=== PATIENT | female | born 1990 | race Caucasian/White ===

== ENCOUNTER 2017-11-12 17:35 | Emergency (ER) | payer MEDICAID ==
[~2017-11-12] VITALS: Ht 154.9 cm; Wt 52.2 kg
[~2017-11-12 17:35] MED LIST: Bactrim Ds Tab1 EACH PO; CEFAZOLIN2 GM/50 M1 IV; CEPH250A PO; CEPH500 PO; CODACE30 PO; CYCL10 PO; Diflucan200 MG PO; HYDACE5 PO; IBUP600; IBUP800 PO; Lisinopril2.5 MG PO; METERG.2 PO; NAPR500 PO; Norco 10-325 T1 EACH PO; ONDA4 PO; ONDA4ODT MM; OXYACE5T PO; OXYC5; PROM25 PO; RXHYDACE PO
[2017-11-12 18:08] LABS: Source, Urine Clean Catch
[2017-11-12 18:13] LABS: Appearance, Urine Hazy (Clear); Bilirubin, Urine Neg (Neg); Blood, Urine 1+ (Neg); Color, Urine Yellow (P-Yellow); Glucose Qualitative, Urine Neg (Neg); Ketones, Urine 4+ (Neg); Leukocyte Esterase, Urine 2+ (Neg); Nitrite, Urine Pos (Neg); Protein, Urine 1+ (Neg); Urobilinogen, Urine NORM (Normal)
[2017-11-12 18:22] LABS: BASOPHILS ABSOLUTE AUTO 0.04 K/mm3 (0.00-0.23); BASOPHILS PERCENT AUTO 1 % (0-2); EOSINOPHILS ABSOLUTE AUTO 0.05 K/mm3 (0.00-0.68); EOSINOPHILS PERCENT AUTO 1 % (0-6); Hematocrit 38.4 % (33.0-51.0); Hemoglobin 12.8 g/dL (11.5-16.0); IMMATURE GRAN ABSOLUTE AUTO 0.02 K/mm3 (0.00-0.10); IMMATURE GRAN PERCENT AUTO 0 % (0-1); LYMPHOCYTES ABSOLUTE AUTO 2.64 K/mm3 (0.84-5.20); LYMPHOCYTES PERCENT AUTO 35 % (21-46); MONOCYTES ABSOLUTE AUTO 0.57 K/mm3 (0.16-1.47); MONOCYTES PERCENT AUTO 8 % (4-13); Mean Corpuscular HGB Conc 33.3 g/dL (31.5-36.5); Mean Corpuscular Volume 87 fL (80-100); Mean Platelet Volume 10.4 fL (9.1-12.4); NEUTROPHILS ABSOLUTE AUTO 4.18 K/mm3 (1.96-9.15); NEUTROPHILS PERCENT AUTO 56 % (41-73); Platelet Count 242 K/mm3 (150-400); RDW Coefficient Variation 13.8 % (11.7-14.2); Red Blood Cell Count 4.41 M/mm3 (3.80-5.20)
[2017-11-12 18:39] LABS: Bacteria Mod /hpf; Mucus Mod (0-Heavy); Squamous Epithelial Cells Few /hpf (Few)
[2017-11-12 18:56] LABS: Alanine Aminotransfer (ALT/SGP 22 U/L (12-78); Alk Phos 101 U/L (50-136); Anion Gap 11 mmol/L (6-16); Aspartate Aminotrans (AST/SGOT 22 U/L (12-37); Bilirubin, Total 2.4 mg/dL (0.1-1.0); Blood Urea Nitrogen 10 mg/dL (8-24); Bun/Creatinine Ratio 17.6 (12.0-20.0); CO2, Blood 24 mmol/L (21-32); Calcium, Blood 9.2 mg/dL (8.5-10.1); Chloride, Blood 102 mmol/L (98-108); Creatinine, Blood 0.57 mg/dL (0.40-1.00); Globulin, Blood 4.2 g/dL (2.2-4.0); Glomerular Filtration Rate >60 (60-); Glucose, Blood 86 mg/dL (70-99); Potassium, Blood 3.6 mmol/L (3.5-5.5); Sodium, Blood 137 mmol/L (136-145); Total Protein, Blood 8.2 g/dL (6.4-8.2)
[2017-11-12 18:57] LABS: Beta HCG, Quantitative, Serum 15475 mIU/mL (0-3)
== END 2017-11-12 22:55 | disposition home or self-care (01) ==
LOC: ER 17:35
PROVIDERS: Emergency Medicine
DX: O20.0 Threatened abortion (principal); Z3A.01 Less than 8 weeks gestation of pregnancy
CPT/HCPCS: 36415; 76801; 76817; 80053; 81001; 84702; 85025; 86900; 86901; 87077; 87086; 87186; 96374; 96375; 99284-25; J0780; J1200

== ENCOUNTER → 2018-02-11 | Outpatient (CLI) | payer OTHER ==
[2018-02-11 18:21] LABS: U Amphetamine Screen Not Detected; U Barbituate Screen Not Detected; U Benzodiazapine Screen Not Detected; U Cocaine Screen Not Detected; U Methadone Screen Not Detected; U Methamphetamine Screen Not Detected; U Opiates Screen DETECTED
[2018-02-11 18:22] LABS: U Buprenorphine Screen Not Detected; U Cannabinoids Screen Not Detected; U Oxycodone Screen Not Detected; U Phencyclidine Screen Not Detected; U Propoxyphene Screen Not Detected
== END | disposition home or self-care (01) ==
LOC: LAB SHORT 16:51
PROVIDERS: Obstetrics & Gynecology
DX: Z34.82 Encounter for supervision of other normal pregnancy, second trimester (principal); F11.10 Opioid abuse, uncomplicated

== ENCOUNTER 2018-03-28 15:06 | Emergency (ER) | payer OTHER ==
[~2018-03-28] VITALS: Ht 162.6 cm; Wt 54.4 kg
[2018-03-28 16:46] LABS: BASOPHILS ABSOLUTE AUTO 0.03 K/mm3 (0.00-0.23); BASOPHILS PERCENT AUTO 0 % (0-2); EOSINOPHILS PERCENT AUTO 0 % (0-6); Hematocrit 37.4 % (33.0-51.0); Hemoglobin 12.7 g/dL (11.5-16.0); IMMATURE GRAN ABSOLUTE AUTO 0.11 K/mm3 (0.00-0.10); IMMATURE GRAN PERCENT AUTO 1 % (0-1); LYMPHOCYTES ABSOLUTE AUTO 1.54 K/mm3 (0.84-5.20); LYMPHOCYTES PERCENT AUTO 10 % (21-46); MONOCYTES ABSOLUTE AUTO 0.36 K/mm3 (0.16-1.47); MONOCYTES PERCENT AUTO 2 % (4-13); Mean Corpuscular Volume 88 fL (80-100); Mean Platelet Volume 10.1 fL (9.1-12.4); NEUTROPHILS ABSOLUTE AUTO 13.42 K/mm3 (1.96-9.15); NEUTROPHILS PERCENT AUTO 87 % (41-73); Platelet Count 272 K/mm3 (150-400); RDW Coefficient Variation 13.1 % (11.7-14.2); RDW Standard Deviation 42.5 fL (35.1-46.3); Red Blood Cell Count 4.23 M/mm3 (3.80-5.20); White Blood Cell Count 15.46 K/mm3 (4.00-11.30)
[2018-03-28 16:56] LABS: Alanine Aminotransfer (ALT/SGP 14 U/L (12-78); Albumin, Blood 3.3 g/dL (3.4-5.0); Albumin/Globulin Ratio 0.7 (0.8-1.8); Alk Phos 108 U/L (50-136); Anion Gap 12 mmol/L (6-16); Aspartate Aminotrans (AST/SGOT 15 U/L (12-37); Bilirubin, Total 0.7 mg/dL (0.1-1.0); Blood Urea Nitrogen 8 mg/dL (8-24); CO2, Blood 19 mmol/L (21-32); Calcium, Blood 9.7 mg/dL (8.5-10.1); Chloride, Blood 107 mmol/L (98-108); Creatinine, Blood 0.45 mg/dL (0.40-1.00); Globulin, Blood 4.8 g/dL (2.2-4.0); Glomerular Filtration Rate >60 (60-); Glucose, Blood 89 mg/dL (70-99); Potassium, Blood 3.1 mmol/L (3.5-5.5); Sodium, Blood 138 mmol/L (136-145); Total Protein, Blood 8.1 g/dL (6.4-8.2)
[2018-03-28] MEDS ORDERED: Zofran4 MG PO (18:31)
[2018-03-28] MEDS ORDERED: K-Dur 20 meq T20 MEQ PO (19:29)
== END 2018-03-28 19:55 | disposition home or self-care (01) ==
LOC: ER 15:06
PROVIDERS: Physician Assistant
DX: O99.322 Drug use complicating pregnancy, second trimester (principal); F11.23 Opioid dependence with withdrawal; Z3A.25 25 weeks gestation of pregnancy
CPT/HCPCS: 36415; 80053; 83690; 84703; 85025; 96361; 96374; 99283-25; J2405; J7120

== ENCOUNTER 2018-03-30 13:02 | Emergency (ER) | payer OTHER ==
[~2018-03-30] VITALS: Ht 154.9 cm; Wt 50.8 kg
[~2018-03-30 13:02] MED LIST changes: +K-Dur 20 meq T20 MEQ PO; +Zofran4 MG PO
[2018-03-30 14:59] LABS: Alanine Aminotransfer (ALT/SGP 29 U/L (12-78); Albumin, Blood 3.2 g/dL (3.4-5.0); Albumin/Globulin Ratio 0.7 (0.8-1.8); Alk Phos 100 U/L (50-136); Anion Gap 13 mmol/L (6-16); Aspartate Aminotrans (AST/SGOT 32 U/L (12-37); Bilirubin, Total 1.1 mg/dL (0.1-1.0); Blood Urea Nitrogen 14 mg/dL (8-24); Bun/Creatinine Ratio 27.2 (12.0-20.0); CO2, Blood 20 mmol/L (21-32); Calcium, Blood 8.9 mg/dL (8.5-10.1); Chloride, Blood 103 mmol/L (98-108); Creatinine, Blood 0.52 mg/dL (0.40-1.00); Globulin, Blood 4.6 g/dL (2.2-4.0); Glomerular Filtration Rate >60 (60-); Glucose, Blood 90 mg/dL (70-99); Potassium, Blood 2.8 mmol/L (3.5-5.5); Sodium, Blood 136 mmol/L (136-145); Total Protein, Blood 7.8 g/dL (6.4-8.2)
[2018-03-30 15:57] LABS: BASOPHILS ABSOLUTE AUTO 0.03 K/mm3 (0.00-0.23); BASOPHILS PERCENT AUTO 0 % (0-2); EOSINOPHILS ABSOLUTE AUTO 0.01 K/mm3 (0.00-0.68); EOSINOPHILS PERCENT AUTO 0 % (0-6); Hematocrit 32.6 % (33.0-51.0); Hemoglobin 11.5 g/dL (11.5-16.0); IMMATURE GRAN ABSOLUTE AUTO 0.08 K/mm3 (0.00-0.10); IMMATURE GRAN PERCENT AUTO 1 % (0-1); LYMPHOCYTES PERCENT AUTO 21 % (21-46); MONOCYTES ABSOLUTE AUTO 0.85 K/mm3 (0.16-1.47); MONOCYTES PERCENT AUTO 7 % (4-13); Mean Corpuscular HGB 30.3 pg (26.0-34.0); Mean Corpuscular HGB Conc 35.3 g/dL (31.5-36.5); Mean Corpuscular Volume 86 fL (80-100); Mean Platelet Volume 9.5 fL (9.1-12.4); NEUTROPHILS ABSOLUTE AUTO 8.73 K/mm3 (1.96-9.15); NEUTROPHILS PERCENT AUTO 71 % (41-73); Platelet Count 257 K/mm3 (150-400); RDW Coefficient Variation 12.9 % (11.7-14.2); RDW Standard Deviation 40.4 fL (35.1-46.3); Red Blood Cell Count 3.79 M/mm3 (3.80-5.20)
== END 2018-03-30 17:28 | disposition home or self-care (01) ==
LOC: ER 13:02
PROVIDERS: Emergency Medicine; Physician Assistant
DX: O99.322 Drug use complicating pregnancy, second trimester (principal); F11.23 Opioid dependence with withdrawal; Z88.8 Allergy status to other drugs, medicaments and biological substances; Z88.0 Allergy status to penicillin; Z3A.26 26 weeks gestation of pregnancy
CPT/HCPCS: 36415; 80053; 83690; 85025; 96361; 96374; 99283-25; J2405; J7120

== ENCOUNTER 2018-04-01 12:40 | Observation (INO) | payer OTHER ==
[~2018-04-01] VITALS: Ht 154.9 cm; Wt 50.8 kg
[2018-04-01 14:27] LABS: BASOPHILS ABSOLUTE AUTO 0.03 K/mm3 (0.00-0.23); BASOPHILS PERCENT AUTO 0 % (0-2); EOSINOPHILS ABSOLUTE AUTO 0.04 K/mm3 (0.00-0.68); EOSINOPHILS PERCENT AUTO 0 % (0-6); Hematocrit 36.1 % (33.0-51.0); Hemoglobin 12.3 g/dL (11.5-16.0); IMMATURE GRAN ABSOLUTE AUTO 0.12 K/mm3 (0.00-0.10); IMMATURE GRAN PERCENT AUTO 1 % (0-1); LYMPHOCYTES ABSOLUTE AUTO 2.74 K/mm3 (0.84-5.20); LYMPHOCYTES PERCENT AUTO 28 % (21-46); MONOCYTES ABSOLUTE AUTO 0.63 K/mm3 (0.16-1.47); MONOCYTES PERCENT AUTO 7 % (4-13); Mean Corpuscular HGB 29.9 pg (26.0-34.0); Mean Corpuscular HGB Conc 34.1 g/dL (31.5-36.5); Mean Corpuscular Volume 88 fL (80-100); Mean Platelet Volume 10.1 fL (9.1-12.4); NEUTROPHILS ABSOLUTE AUTO 6.11 K/mm3 (1.96-9.15); NEUTROPHILS PERCENT AUTO 63 % (41-73); Platelet Count 264 K/mm3 (150-400); RDW Standard Deviation 41.6 fL (35.1-46.3); Red Blood Cell Count 4.12 M/mm3 (3.80-5.20); White Blood Cell Count 9.67 K/mm3 (4.00-11.30)
[2018-04-01 14:30] LABS: Chloride (POC) 101 mmol/L (98-108); Creatinine (POC) 0.3 mg/dL (0.6-1.0); Glucose (ISTAT POC) 92 mg/dL (70-99); Hemoglobin (POC) 10.9 g/dL (12.0-16.0); Potassium (POC) 2.7 mmol/L (3.5-5.5); Sodium (POC) 137 mmol/L (135-148); Total CO2 (POC) 23 mmol/L (21-32)
[2018-04-01 14:32] LABS: Alanine Aminotransfer (ALT/SGP 100 U/L (12-78); Albumin, Blood 3.1 g/dL (3.4-5.0); Albumin/Globulin Ratio 0.7 (0.8-1.8); Alk Phos 102 U/L (50-136); Anion Gap 11 mmol/L (6-16); Aspartate Aminotrans (AST/SGOT 84 U/L (12-37); Bilirubin, Total 0.7 mg/dL (0.1-1.0); Blood Urea Nitrogen 7 mg/dL (8-24); Bun/Creatinine Ratio 14.8 (12.0-20.0); CO2, Blood 24 mmol/L (21-32); Calcium, Blood 8.7 mg/dL (8.5-10.1); Chloride, Blood 103 mmol/L (98-108); Creatinine, Blood 0.47 mg/dL (0.40-1.00); Globulin, Blood 4.5 g/dL (2.2-4.0); Glomerular Filtration Rate >60 (60-); Glucose, Blood 89 mg/dL (70-99); Potassium, Blood 2.8 mmol/L (3.5-5.5); Sodium, Blood 138 mmol/L (136-145); Total Protein, Blood 7.6 g/dL (6.4-8.2)
[2018-04-01 16:39] LABS: Source, Urine Clean Catch
[2018-04-01 16:42] LABS: Bilirubin, Urine Neg (Neg); Blood, Urine Neg (Neg); Glucose Qualitative, Urine Neg (Neg); Ketones, Urine 3+ (Neg); Leukocyte Esterase, Urine 2+ (Neg); Nitrite, Urine Neg (Neg); Protein, Urine 1+ (Neg); Specific Gravity, Urine 1.005 (1.003-1.022); Urobilinogen, Urine 1+ (Normal)
[2018-04-01 16:53] LABS: Appearance, Urine Clear (Clear); Color, Urine Yellow (P-Yellow)
[2018-04-01 16:54] LABS: Bacteria Many /hpf; Mucus Mod (0-Heavy); Red Blood Cells, Urine 0-2 /hpf (0-2); Squamous Epithelial Cells Mod /hpf (Few)
--- NOTE | 2018-04-01 19:16 | NUR ---
RECEIVED FROM ER ABOUT 30 MIN AGO. [facility] ENTRY CLERK WAS WITH HER. SHE WILL PUT IN ORDERS. PATIENT HAS DIARRHEA AND NAUSEA. K-RIDER RESUMED.
--- NOTE | 2018-04-01 21:05 | NUR ---
CALLED DR WITH RESULTS OF EKG, QTC IS 435, NSR
[2018-04-01 22:58] LABS: U Amphetamine Screen Not Detected; U Barbituate Screen Not Detected; U Benzodiazapine Screen Not Detected; U Buprenorphine Screen Not Detected; U Cannabinoids Screen Not Detected; U Cocaine Screen Not Detected; U Methadone Screen Not Detected; U Methamphetamine Screen Not Detected; U Opiates Screen Not Detected; U Oxycodone Screen Not Detected; U Phencyclidine Screen Not Detected; U Propoxyphene Screen Not Detected
[2018-04-02 05:45] LABS: Anion Gap 9 mmol/L (6-16); Blood Urea Nitrogen 3 mg/dL (8-24); Bun/Creatinine Ratio 7.7 (12.0-20.0); CO2, Blood 23 mmol/L (21-32); Calcium, Blood 7.9 mg/dL (8.5-10.1); Chloride, Blood 109 mmol/L (98-108); Creatinine, Blood 0.39 mg/dL (0.40-1.00); Glomerular Filtration Rate >60 (60-); Glucose, Blood 97 mg/dL (70-99); Sodium, Blood 141 mmol/L (136-145)
--- NOTE | 2018-04-02 05:47 | NUR ---
PAINT STOCKMAN SUMMARY NO ACUTE CHANGES THIS SHIFT. PT AAOX4 AND INDEPENDENT IN ROOM. PLEASANT AND COOPERATIVE WITH CARE. TREATED FOR NAUSEA X1 TONIGHT WITH SCHEDULED REGLAN, PT REPORTED GOOD RELIEF WITH REGLAN. PT REQUESTED A SLEEP AID BUT STATED MELATONIN ISN'T EFFECTIVE FOR HER. SPOKE WITH MAIK RIGGS NP REGARDING PT REQUEST, HOWEVER MAIK WAS UNABLE TO PRESCRIBE SOMETHING DUE TO PT BEING . URINE TOX COLLECTED. VSS, WILL CONTINUE TO MONITOR.
--- NOTE | 2018-04-02 09:13 | NUR ---
CALLED FAMILY TO DO HEART TONES. PATIENT HAS BOT FELT BABY MOVE IN AWHILE AND REPORTS INTERMITTENT CONTRATIONS. FAMILY TALKING TO DOCTOR THAT IS ON THE UNIT AND WILL BE UP TO DO FHT.
--- NOTE | 2018-04-02 09:44 | NUR ---
FAWAD ANDREWS FROM [facility] AT BEDSIDE TO DO AN ULTRASOUND, FHT 150 AT THIS TIME.
--- NOTE | 2018-04-02 09:45 | NUR ---
CALLED TO PT ROOM TO EVALUATE PT FOR PTL AND DECREASED MOVEMENT. PT REPORTS FEELING 4 CRAMPS IN 45 MIN THAT BEGAN AT 0830. ONCE I AM IN THE ROOM PT EMPTIES HER BLADDER AND TO BED FOR EFM. PT DENIES ANY U/C WHILE ON EFM. REPORTS MOVEMENT. HEART TONES APPROPRIATE FOR GESTATIONAL AGE AND MOVEMENT NOTED. Moises ALVAREZ CNM CALLED AT 0940, UPDATED AND PT OFF EFM.
--- NOTE | 2018-04-02 18:34 | NUR ---
PATIENT A/OX4, UP INDEPENDENTLY IN ROOM. ORDERS FOR NO IV SITE. PO ZOFRAN AND REGLAN TO CONTROL NAUSEA. PATIENT IS 27 WEEKS . [facility] TO COME UP QSHIFT TO DO FHT. POTASSIUM REPLACED ORALLY, PATIENT HAD A HARD TIME KEEPING IT DOWN. TOOK 1/2 TABS AT A TIME OVER SEVERAL HOURS, STATES SHE THREW UP LAST 1/2 TAB. MULTIPLE ATTEMPTS TO START AN IV WITHOUT SUCCESS. REPORTS BLOODY STOOL THIS EVENING, HAT PLACED TO ATTEMPT TO CATCH A SAMPLE. PLAN IS FOR PATIENT TO D/C. APPT MADE FOR THURSDAY AT [facility].
--- NOTE | 2018-04-02 22:38 | NUR ---
PT REQUESTED TO WAIT UNTIL TOMORROW MORNING FOR NEXT HEART MONITORING. PT STATES "THE BABY HAS BEEN MOVING AROUND ALL DAY AND THEY MONITORED THE HEART RATE EARLIER TODAY SO I'D LIKE TO GET SOME SLEEP AND WAIT UNTIL TOMORROW".
[2018-04-02 23:50] LABS: Stool Occult Blood Guaiac 1 Neg (Neg)
--- NOTE | 2018-04-03 05:36 | NUR ---
LICENSED SALES PRODUCER SUMMARY NO ACUTE CHANGES THIS SHIFT. PT AAOX4 AND INDEPENDENT IN HER ROOM. PT NAUSEA HAS BEEN WELL MANAGED WITH SCHEDULED REGLAN AND PRN ZOFRAN. RECIEVED ORDER FROM HOSPITALIST FOR TUMS AND BENADRYL. PT REPORTED INDIGESTION AND DIFFICULTY SLEEPING. PT STATED TUMS HELPED WITH INDIGESTION BUT BENADRYL DID NOT HELP WITH SLEEP. PT ALSO REPORTS SOME STOMACH DISCOMFORT THAT WAS RELIEVED A LITTLE WITH TYLENOL. HOSPITALISTS CAUTIOUS TO ORDER ADDITIONAL PAIN MEDS OR SLEEP AIDS. DISCUSSED WITH PT TO TALK WITH NURSE DENTAL PROFESSIONAL ULYSSES ALVAREZ ABOUT ORDERING ADDITIONAL PAIN MEDS AND SLEEP AIDS THAT ARE APPROVED FOR PT TO USE WHILE . COLLECTED STOOL SAMPLE FOR GUAIAC TEST, WHICH WAS NEGATIVE. VSS, WILL CONTINUE TO MONITOR.
[2018-04-03 06:00] LABS: Anion Gap 8 mmol/L (6-16); Blood Urea Nitrogen 4 mg/dL (8-24); CO2, Blood 24 mmol/L (21-32); Calcium, Blood 9.3 mg/dL (8.5-10.1); Chloride, Blood 106 mmol/L (98-108); Creatinine, Blood 0.44 mg/dL (0.40-1.00); Glomerular Filtration Rate >60 (60-); Glucose, Blood 98 mg/dL (70-99); Potassium, Blood 3.5 mmol/L (3.5-5.5); Sodium, Blood 138 mmol/L (136-145)
--- NOTE | 2018-04-03 09:02 | NUR ---
HEART TONES CHECKED BY ARCHANA CELESTIN (L&D) REPORTED HEART RATE 172.
[2018-04-03 09:11] LABS: Alanine Aminotransfer (ALT/SGP 76 U/L (12-78); Albumin, Blood 2.7 g/dL (3.4-5.0); Albumin/Globulin Ratio 0.7 (0.8-1.8); Alk Phos 88 U/L (50-136); Anion Gap 8 mmol/L (6-16); Aspartate Aminotrans (AST/SGOT 40 U/L (12-37); Bilirubin, Total 0.5 mg/dL (0.1-1.0); Blood Urea Nitrogen 3 mg/dL (8-24); Bun/Creatinine Ratio 7.3 (12.0-20.0); CO2, Blood 23 mmol/L (21-32); Calcium, Blood 9.2 mg/dL (8.5-10.1); Chloride, Blood 107 mmol/L (98-108); Creatinine, Blood 0.41 mg/dL (0.40-1.00); Globulin, Blood 3.9 g/dL (2.2-4.0); Glomerular Filtration Rate >60 (60-); Glucose, Blood 94 mg/dL (70-99); Potassium, Blood 3.5 mmol/L (3.5-5.5); Sodium, Blood 138 mmol/L (136-145); Total Protein, Blood 6.6 g/dL (6.4-8.2)
--- NOTE | 2018-04-03 09:11 | NUR ---
CALLED TO CHECK HEART TONES BY RN. FHT'S VIA DOPPLER 171.
--- NOTE | 2018-04-03 10:04 | NUR ---
PT CALLED STATED SHE HAS BEEN HAVING INCREASING STRENGTH CONTRACTIONS 3 IN THE PAST 20 MINUTES. DURRING ASSESSMENT THIS MORNING PT WAS HAVING PALPABLE CONTRACTIONS. WITH INCREASE IN PAIN AND FREQUENCY, CALLED ANSWERING SERVICE FOR CARLOS HARRELL. NEW ORDER FOR NST TO ENSURE PT NOT IN PRE TERM LABOR.
--- NOTE | 2018-04-03 10:09 | NUR ---
CALLED FAMILY PLACE TO REQUEST NST. SPOKE TO LIZETH IN [facility], ARCHANA CELESTIN WILL RETURN SHORTLY WITH THE MONITOR.
--- NOTE | 2018-04-03 16:01 | NUR ---
TRANSFER NOTE- *LATE ENTRY* PT TRANSFERED TO FAMILY . CONTRACTIONS STILL PRESENT OCCASSIONALLY AND HYPOKALEMIA IS BETTER PT POTASSIUM 3.5 THIS AM. PT IV ACCESS OBTAINED JUST PRIOR TO TRANSFER. IVF ORDERED PT ALERT AND ORIENTED SPOUSE AT THE BEDSIDE. TAKEN TO [facility] BY RN VIA W/C. REPORT GIVEN TO ARCHANA CELESTIN [facility].
--- NOTE | 2018-04-03 18:13 | NUR ---
ARRIVED FROM MEDICAL FLOOR VIA W/C. PATIENT QUIET AND COOPERATIVE. IV INFILTRATED AND WAS RESTARTED. MONITORED FOR REPORT OF CONTRACTIONS. PATIENT REASSURED WHEN I EXPLAINED THE CONTRACTIONS WERE LESS THAT 40 SECONDS AND IRREGULAR SO DID NOT REQUIRE INTERVENTIONS
--- NOTE | 2018-04-03 20:13 | NUR ---
K-PAD GIVEN FOR LOW BACK/FLANK CRAMPS, PT DENIES ANY BURNING WITH URINATION.
[2018-04-04 05:57] LABS: BASOPHILS ABSOLUTE AUTO 0.03 K/mm3 (0.00-0.23); BASOPHILS PERCENT AUTO 0 % (0-2); EOSINOPHILS ABSOLUTE AUTO 0.06 K/mm3 (0.00-0.68); EOSINOPHILS PERCENT AUTO 1 % (0-6); Hematocrit 30.6 % (33.0-51.0); Hemoglobin 10.6 g/dL (11.5-16.0); IMMATURE GRAN ABSOLUTE AUTO 0.11 K/mm3 (0.00-0.10); IMMATURE GRAN PERCENT AUTO 1 % (0-1); LYMPHOCYTES ABSOLUTE AUTO 3.27 K/mm3 (0.84-5.20); LYMPHOCYTES PERCENT AUTO 33 % (21-46); MONOCYTES ABSOLUTE AUTO 0.51 K/mm3 (0.16-1.47); MONOCYTES PERCENT AUTO 5 % (4-13); Mean Corpuscular HGB 30.6 pg (26.0-34.0); Mean Corpuscular HGB Conc 34.6 g/dL (31.5-36.5); Mean Corpuscular Volume 88 fL (80-100); NEUTROPHILS ABSOLUTE AUTO 5.82 K/mm3 (1.96-9.15); NEUTROPHILS PERCENT AUTO 59 % (41-73); Platelet Count 251 K/mm3 (150-400); RDW Standard Deviation 41.5 fL (35.1-46.3); Red Blood Cell Count 3.46 M/mm3 (3.80-5.20)
[2018-04-04 06:26] LABS: Alanine Aminotransfer (ALT/SGP 58 U/L (12-78); Albumin, Blood 2.6 g/dL (3.4-5.0); Albumin/Globulin Ratio 0.7 (0.8-1.8); Alk Phos 86 U/L (50-136); Anion Gap 9 mmol/L (6-16); Aspartate Aminotrans (AST/SGOT 28 U/L (12-37); Bilirubin, Total 0.4 mg/dL (0.1-1.0); Blood Urea Nitrogen 3 mg/dL (8-24); Bun/Creatinine Ratio 6.8 (12.0-20.0); CO2, Blood 23 mmol/L (21-32); Calcium, Blood 8.7 mg/dL (8.5-10.1); Chloride, Blood 108 mmol/L (98-108); Creatinine, Blood 0.44 mg/dL (0.40-1.00); Globulin, Blood 3.6 g/dL (2.2-4.0); Glomerular Filtration Rate >60 (60-); Glucose, Blood 87 mg/dL (70-99); Potassium, Blood 3.3 mmol/L (3.5-5.5); Sodium, Blood 140 mmol/L (136-145); Total Protein, Blood 6.2 g/dL (6.4-8.2)
--- NOTE | 2018-04-04 11:57 | NUR ---
LOTS OF EDUCATION ON WHAT TO EAT. STARTING WITH BLAND FOOD, KEEPING DRY CRACKERS, PRETZELS, CHEX CERAL AT BEDSIDE, EATING ONE BITE OF SOMETHING AN HOUR. SIPPING ON WATER, ICE CHIPS OR POPSICLES TO KEEP HYDRATED. GOT PT LOTS OF SNACKS TO TRY THIS AM. TALKED ABOUT SLOW AND A BITE AT A TIME AND WAITING. AT 1100 PT REPORTS EATING A STEPHY DOONE COOKIE, DENIES NAUSEA AT THIS TIME. AT 1130, PT REPORTS THRU COOKIE UP. BUT HAS URINE IN HER HAT, HAS NAUSEA BAG STILL SITTING ON BEDSIDE TABLE. AND NO VOMIT IN EITHER GARGABE CAN IN ROOM. LUNCH TRAY AT BEDSIDE AT 1155, PT ASKING FOR CHOCOLATE MILK INSTEAD OF 1%. SHE DRANK ORANGE JUICE WITH NIFEDIPHINE THIS MORNING INSTEAD OF AUDREY ELA AT BEDSIDE AND GOT NAUSEAED. CH WAS AT BEDSIDE AT 0925, REASSUREING PT THAT HER CERVIX IS 2.5CM AND REASSURING.
--- NOTE | 2018-04-04 16:53 | NUR ---
pt reports feeling better. reports about 40% better, held lunch down ate about 1/4 of tray, held 2 popsicles down and 1/2 of bag of pretzels. sipping on serria mist. pt thought SROM of leaking fluid, nitrazine negative at introtus, wet yellow color, no blue at all. pt reassured that all is ok
--- NOTE | 2018-04-04 18:07 | NUR ---
pt ate 95% of her baked potatoe for dinner and has no nausea currently,
--- NOTE | 2018-04-04 18:11 | NUR ---
ffn negative per anthony in lab, she is putting it in the computer now.
--- NOTE | 2018-04-04 22:49 | NUR ---
PATIENT REQUEST SOMETHING FOR SLEEP - BENADRYL ORDERED PT DECLINED - PER PT LOTS OF PAIN - UC - PALPATED UTERUS NO UC NOTED VERY ACTIVE BABY NOTED TEACHING DONE WITH PATIENT USING KPAD DENIES ANY OTHER NEEDS AT THIS TIME
--- NOTE | 2018-04-05 00:30 | NUR ---
PT SLEEPING, UNDISTURBED
--- NOTE | 2018-04-05 08:55 | NUR ---
RN CALLED TO ROOM, PT FEELS CHEST IS HEAVY, LS CLEAR BILATERLLY, NO WHEEZING, NO DIFFICULTY BREATHING, RESP RATE IS 22, ON BIOX 97% ON ROOM AIR, BP IS WITH PT RANGE. LEFT ON BIOX TIL 929, PT FEELING BETTER, ASKED PT ABOUT ANXIETY AND IF SHE HAS EVER HAD AN ANXIETY ATTACK, PT SAYS NO, BUT SHE THINKS IT COULD HAVE BEEN THAT.
[2018-04-05] MEDS ORDERED: METO10 PO (10:13)
[2018-04-05] MEDS ORDERED: Zofran4 MG PO (10:14)
--- NOTE | 2018-04-05 10:25 | NUR ---
WENT OVER DC INSTRUCTIONS, GOING HOME ON MODIFIED BEDREST PER CH. PT TO SEE CH THIS WEEK, TO CALL CH IF HAS ANY PROBLEMS. SCRIPT WAS CALLED IN PER PT REQUEST. PT LEAVING [facility] AND GOING TO [facility] APPT. AT BEDSIDE WHEN NOT WORKING ATTENTIVE. HE IS HER RIDE TO [facility]. PT DENIES ANY QUESTIONS, EXPLAINED THAT PT TO COME TO [facility] FOR PROBLEMS, AFTER CLEARED FROM [facility] IF NOT OB RELATED WILL SEND PT UP TO ER TO SEE ER DOCTOR.
--- NOTE | 2018-04-05 10:30 | NUR ---
DC HOME, PT HAD CANCELED HER APPT FOR [facility], ABLE TO GET HER APPT BACK FOR HER. ABLE TO HOLD FOOD DOWN, SCRIPT WAS CALLED AT 0951 TO [facility] MCCARTHY (PT CHOICE) FOR REGLAN 10MG AMOUNT 30 AND ZOFORAN 4MG AMOUNT 30, PT TO SEE CH THIS WEEK IN THE OFFICE, PT HAS COPY OF OUTPT DC INSTRUCTIONS THAT COVER LABOR AND WHAT TO DO. PT VERBALIZED UNDERSTANDING, ENOURAGED FOR HER TO RETURN TO [facility] IF NEEDS TO, BUT IF WE CLEAR HER OB, THEN WILL SEND TO ER FOR NON OB RELATED PROBLEM. PT VERBALIZED UNDERSTANDING. ENCOURAGED LOTS OF FLUIDS WITH SIPPING AND EATING SOMETHING DRY EVERY 1 HOUR LIKE 1-2 SMALL PRETZELS OR BITE OF BAGEL OR DRY CERAL. DOING THIS PT HAS BEEN ABLE TO HOLD FOOD DOWN WITH NO PROBLEMS IN SMALL AMOUNTS.
== END 2018-04-05 10:30 | disposition home or self-care (01) ==
LOC: ER 12:40 → MEDS 12:41 → BC 19:07
PROVIDERS: Internal Medicine; Nurse Practitioner Obstetrics & Gynecology; Physician Assistant; ADMIT Hospitalist
DX: O99.282 Endocrine, nutritional and metabolic diseases complicating pregnancy, second trimester (principal); F11.23 Opioid dependence with withdrawal; R11.2 Nausea with vomiting, unspecified; O99.322 Drug use complicating pregnancy, second trimester; O60.02 Preterm labor without delivery, second trimester; D72.829 Elevated white blood cell count, unspecified; O99.112 Other diseases of the blood and blood-forming organs and certain disorders involving the immune mechanism complicating pregnancy, second trimester; E87.6 Hypokalemia; Z88.5 Allergy status to narcotic agent; Z86.14 Personal history of Methicillin resistant Staphylococcus aureus infection; Z86.79 Personal history of other diseases of the circulatory system; Z3A.25 25 weeks gestation of pregnancy; Z79.899 Other long term (current) drug therapy; Z88.1 Allergy status to other antibiotic agents
CPT/HCPCS: 36415; 76815; 76817; 80047; 80048; 80053; 81001; 82270; 82731; 83735; 85014; 85025; 87040; 87086; 93005; 93010; 96361; 96365; 96366; 96372; 96375; 96376; 99284-25; C1751; C9113; G0378; J2405; J2765; J3105; J3480; J7030; J7120; Q0163

== ENCOUNTER 2018-05-12 00:49 | Observation (INO) | payer OTHER ==
[~2018-05-12] VITALS: Ht 154.9 cm; Wt 49.3 kg
[~2018-05-12 00:49] MED LIST changes: +METO10 PO
[2018-05-12] MEDS ORDERED: Verotin-Gr Cap1 EACH PO (01:34)
[2018-05-12 02:02] LABS: BASOPHILS ABSOLUTE AUTO 0.03 K/mm3 (0.00-0.23); BASOPHILS PERCENT AUTO 0 % (0-2); EOSINOPHILS PERCENT AUTO 0 % (0-6); Hematocrit 36.7 % (33.0-51.0); Hemoglobin 12.2 g/dL (11.5-16.0); IMMATURE GRAN ABSOLUTE AUTO 0.11 K/mm3 (0.00-0.10); IMMATURE GRAN PERCENT AUTO 1 % (0-1); LYMPHOCYTES ABSOLUTE AUTO 2.06 K/mm3 (0.84-5.20); LYMPHOCYTES PERCENT AUTO 19 % (21-46); MONOCYTES ABSOLUTE AUTO 0.48 K/mm3 (0.16-1.47); MONOCYTES PERCENT AUTO 4 % (4-13); Mean Corpuscular HGB 29.6 pg (26.0-34.0); Mean Corpuscular HGB Conc 33.2 g/dL (31.5-36.5); Mean Corpuscular Volume 89 fL (80-100); Mean Platelet Volume 10.3 fL (9.1-12.4); NEUTROPHILS ABSOLUTE AUTO 8.36 K/mm3 (1.96-9.15); NEUTROPHILS PERCENT AUTO 76 % (41-73); Platelet Count 281 K/mm3 (150-400); RDW Coefficient Variation 13.2 % (11.7-14.2); Red Blood Cell Count 4.12 M/mm3 (3.80-5.20); White Blood Cell Count 11.04 K/mm3 (4.00-11.30)
[2018-05-12 02:19] LABS: Alanine Aminotransfer (ALT/SGP 7 U/L (12-78); Albumin, Blood 3.1 g/dL (3.4-5.0); Albumin/Globulin Ratio 0.7 (0.8-1.8); Alk Phos 152 U/L (50-136); Anion Gap 17 mmol/L (6-16); Aspartate Aminotrans (AST/SGOT 13 U/L (12-37); Bilirubin, Total 1.2 mg/dL (0.1-1.0); Blood Urea Nitrogen 9 mg/dL (8-24); Bun/Creatinine Ratio 16.8 (12.0-20.0); CO2, Blood 14 mmol/L (21-32); Calcium, Blood 9.7 mg/dL (8.5-10.1); Chloride, Blood 107 mmol/L (98-108); Creatinine, Blood 0.54 mg/dL (0.40-1.00); Globulin, Blood 4.7 g/dL (2.2-4.0); Glomerular Filtration Rate >60 (60-); Glucose, Blood 78 mg/dL (70-99); Potassium, Blood 3.8 mmol/L (3.5-5.5); Sodium, Blood 138 mmol/L (136-145); Total Protein, Blood 7.8 g/dL (6.4-8.2)
--- NOTE | 2018-05-12 04:20 | NUR ---
RECEIVED HAND OFF FROM ER NURSE USING SBAR. TRANSPORTED TO ROOM 227 VIA STRETCHER. TRANSFERD SELF TO BED WITH STANDBY ASSIST. AAO X3, MARTINEZ, FOLLOWS ALL COMMANDS. LYING ON RIGHT SIDE WITH EYES CLOSED. ORIENTED TO ROOM, CALL SYSTEM, AND POC, VOICES UNDERSTANDING. RESPIRATIONS EVEN AND UNLABOREDON ROOM AIR. LUNG SOUNDS CLEAR BILATERLLY. ABDOMEN SOFT AND [id number]. BOWEL SOUNDS PRESENT IN ALL QUADS. CONTINENT OF BOWEL AND BLADDER, USES BATHROOM. C/O PAIN OF 8/10 TO RLQ, WILL CALL MD FOR ORDERS. ADMISSION ASSESSMENT IN PROGRESS. SAFETY MEASURES IN PLACE. WILL CONTINUE TO MONITOR.
--- NOTE | 2018-05-12 09:12 | NUR ---
ASSISTING WITH PATIENT CARE, PATIENT GAVE PERMISSION.
--- NOTE | 2018-05-12 09:23 | NUR ---
Patient gave student nurse permission to provide care.
--- NOTE | 2018-05-12 11:16 | NUR ---
notified Naa CELESTIN in OB of order for assessments
--- NOTE | 2018-05-12 15:40 | NUR ---
Pt gave permission to be cared on 05/12/18 for 05/13/18.
--- NOTE | 2018-05-12 18:05 | NUR ---
summary patient with nausea and emesis throughout shift and reports only slight relief with anti nausea meds. patient reports abd pain 9/10. dr wonderly in to see patient and discussed plan of care with patient. patient denies any questions regarding plan of care
--- NOTE | 2018-05-12 18:45 | NUR ---
PATIENTS (VIC) AT BEDSIDE. VIC ANGRY, CURSING AT PATIENT AND MYSELF AND STATES HE WILL NOT ALLOW HIS TO TAKE SUBOXONE. PATIENT TELLS ME SHE WANTS TO TAKE SUBOXONE. VIC INCREASINGLY ANGRY AND CURSING, ATTEMPTED TO SLAP MED CUP OUT OF PATIENTS HAND. PATIENTS WAS TOLD TO LEAVE AND YELLING "FUCK YOU" SECURITY NOTIFIED. PATIENT TELLS ME VIC HAS BEEN IN 2 OTHER TIMES TODAY AND WAS ASKED BY PAYIENT TO LEAVE. PATIENT TELLS ME SHE IS NOT AFRAID OF VIC BUT DOES NOT WANT HIM TO RETURN TO ROOM. SECURITY AT BEDSIDE TO SPEAK WITH PATIENT
--- NOTE | 2018-05-12 19:08 | NUR ---
summary spoke with patient regarding her being listed as confidential and regarding her being moved to another room where she can be in a locked area of the unit. patient requests being moved to a locked area of unit and of being listed as confidential. notified admitting regarding confidential status. room being cleaned by housekeeping and will transfer patient to room 230 when room cleaned
--- NOTE | 2018-05-13 06:40 | NUR ---
SUMMARY: NO ACUTE CHANGE THIS SHIFT. NAUSEATED AT SHIFT START AND LOST IV SITE. PT ABLE TO TOLERATE PO PHENERGAN, AND NEW IV STARTED, NO EMESIS . PT ABLE TO SLEEP. GIVEN TYLENOL FOR A HEADACHE AND FLEXIRIL FOR ABD PAIN AT ABOUT 0300. PRE MEDICATED WITH ZOFRAN. [facility] IN ROOM FOR HEART TONES AT ABOUT 0530. PT REPORTS SHE FEELS MOVEMENT FROM BABY. VSS, PT INDEPENDENT. GIVEN SALEEM THIS AM. NO SAFETY CONCERNS, WILL PASS REPORT TO DAY RN.
--- NOTE | 2018-05-14 04:22 | NUR ---
SUMMARY: NO CHANGE THIS SHIFT. PT HAS DENIED N/V. MEDICATED X1 WITH TYLENOL FOR ABD PAIN. REPORTS MOVEMENT OF BABY. PT INDEPENDENT IN ROOM. VSS, NO SAFETY CONCERNS AT THIS TIME.
[2018-05-14] MEDS ORDERED: ONDA4ODT PO (10:24)
[2018-05-14] MEDS ORDERED: DOCU100 PO (10:25)
[2018-05-14] MEDS ORDERED: ACET325 PO (10:26)
--- NOTE | 2018-05-14 11:14 | NUR ---
TRISTAN MUJICA FROM [facility] HERE TO SEE PATIENT
--- NOTE | 2018-05-14 15:50 | NUR ---
CALL PLACED TO LINDA ROMERO CNM PATIENT HAS BEEN RECEIVING SUBOXONE WHICH WAS NOT PRESCRIBED DISCHARGE MED. [ER LINDA SHE WILL DISCUSS WITH DR HANSEN
--- NOTE | 2018-05-14 15:51 | NUR ---
1415 RECEIVED CALL FROM LINDA ROMERO CNM WHO TELLS ME SHE SPOKE WITHDR WONDERLY AND PATIENT WILL NOT BE PRESCRIBED SUBOXONE AT THIS TIME
--- NOTE | 2018-05-14 16:38 | NUR ---
DISCHARGE INSTRUCTIONS REVIEWED WITH PATIENT AND PATIENT HAS NO QUESTIONS REGARDING INSTRUCTIONS. UNABLE TO SCHEDULE FOLLOW UP APPT DR DIAZ OFFICE CLOSED TODAY. PATIENT TELLS ME SHE WILL CALL TO SCHEDULE. PATIENT WILL BE DISCHARGING WITH HER SONS GRANDMOTHER. PATIENT TELLS ME SHE WILL HAVE SUBSTANCE ABUSE PROGRAM SCREENING ON THURSDAY AND BE ADMITTED TO INPATIENT TREATMENT NEXT THURSDAY. PATIENT TELLS ME SHE IS FEELING SHE CAN STAY CLEAN AND NOT USE WHILE WAITING FOR INPATIENT ADMIT
--- NOTE | 2018-05-14 18:21 | NUR ---
1809 patient discharged ambulatory patient tells me she feels safe discharging to stay with her sons grandmpther
== END 2018-05-14 18:06 | disposition home or self-care (01) ==
LOC: ER 00:49 → SURS 00:50
PROVIDERS: Emergency Medicine; ADMIT Obstetrics & Gynecology
DX: O99.89 Other specified diseases and conditions complicating pregnancy, childbirth and the puerperium (principal); R10.31 Right lower quadrant pain; O21.2 Late vomiting of pregnancy; O99.323 Drug use complicating pregnancy, third trimester; F11.10 Opioid abuse, uncomplicated; Z88.0 Allergy status to penicillin; Z88.8 Allergy status to other drugs, medicaments and biological substances; Z79.899 Other long term (current) drug therapy; Z3A.31 31 weeks gestation of pregnancy
CPT/HCPCS: 59025; 74181; 76857; 80053; 81001; 84702; 85025; 87086; 96361; 96374; 96375; 96376; 99212; 99285-25; G0378; G0480; J2405; J2550; J7120

== ENCOUNTER → 2018-07-20 | Outpatient (CLI) | payer OTHER ==
[~2018-07-20] MED LIST changes: +ACET325 PO; +DOCU100 PO; +ONDA4ODT PO; +Verotin-Gr Cap1 EACH PO
[2018-07-20 17:36] LABS: U Amphetamine Screen Not Detected; U Barbituate Screen Not Detected; U Benzodiazapine Screen Not Detected; U Buprenorphine Screen DETECTED; U Cannabinoids Screen Not Detected; U Cocaine Screen Not Detected; U Methadone Screen Not Detected; U Methamphetamine Screen Not Detected; U Opiates Screen Not Detected; U Oxycodone Screen Not Detected; U Phencyclidine Screen Not Detected; U Propoxyphene Screen Not Detected
== END | disposition home or self-care (01) ==
LOC: LAB 15:14 → LAB SHORT 15:14
PROVIDERS: Family Medicine
DX: F19.11 Other psychoactive substance abuse, in remission (principal)

== ENCOUNTER → 2018-07-27 | Outpatient (CLI) | payer OTHER ==
[2018-07-27 17:32] LABS: U Amphetamine Screen Not Detected; U Barbituate Screen Not Detected; U Benzodiazapine Screen Not Detected; U Buprenorphine Screen DETECTED; U Cannabinoids Screen Not Detected; U Cocaine Screen Not Detected; U Methadone Screen Not Detected; U Methamphetamine Screen Not Detected; U Opiates Screen Not Detected; U Oxycodone Screen Not Detected; U Phencyclidine Screen Not Detected; U Propoxyphene Screen Not Detected
== END | disposition home or self-care (01) ==
LOC: LAB SHORT 15:29 → LAB 15:29
PROVIDERS: Family Medicine
DX: F19.11 Other psychoactive substance abuse, in remission (principal); R30.0 Dysuria
CPT/HCPCS: 87086; G0480

== ENCOUNTER → 2018-08-10 | Outpatient (CLI) | payer OTHER ==
[2018-08-10 18:35] LABS: U Amphetamine Screen Not Detected; U Barbituate Screen Not Detected; U Benzodiazapine Screen Not Detected; U Buprenorphine Screen DETECTED; U Cannabinoids Screen Not Detected; U Cocaine Screen Not Detected; U Methadone Screen Not Detected; U Methamphetamine Screen Not Detected; U Opiates Screen Not Detected; U Oxycodone Screen Not Detected; U Phencyclidine Screen Not Detected; U Propoxyphene Screen Not Detected
== END | disposition home or self-care (01) ==
LOC: LAB SHORT 14:34 → LAB 14:34
PROVIDERS: Family Medicine
DX: F19.11 Other psychoactive substance abuse, in remission (principal)
CPT/HCPCS: G0480

== ENCOUNTER → 2018-08-24 | Outpatient (CLI) | payer OTHER ==
[2018-08-24 17:53] LABS: U Amphetamine Screen Not Detected; U Barbituate Screen Not Detected; U Benzodiazapine Screen Not Detected; U Buprenorphine Screen DETECTED; U Cannabinoids Screen Not Detected; U Cocaine Screen Not Detected; U Methadone Screen Not Detected; U Methamphetamine Screen Not Detected; U Opiates Screen Not Detected; U Oxycodone Screen Not Detected; U Phencyclidine Screen Not Detected; U Propoxyphene Screen Not Detected
== END | disposition home or self-care (01) ==
LOC: LAB UCHC 16:04 → LAB SHORT 16:04
PROVIDERS: Family Medicine
DX: F19.11 Other psychoactive substance abuse, in remission (principal)

== ENCOUNTER → 2018-09-07 | Outpatient (CLI) | payer OTHER ==
[2018-09-07 12:43] LABS: U Amphetamine Screen Not Detected; U Barbituate Screen Not Detected; U Benzodiazapine Screen Not Detected; U Buprenorphine Screen Not Detected; U Cannabinoids Screen Not Detected; U Cocaine Screen Not Detected; U Methadone Screen Not Detected; U Methamphetamine Screen Not Detected; U Opiates Screen Not Detected; U Oxycodone Screen Not Detected; U Phencyclidine Screen Not Detected; U Propoxyphene Screen Not Detected
== END | disposition home or self-care (01) ==
LOC: LAB 10:59 → LAB SHORT 10:59
PROVIDERS: Family Medicine
DX: F19.11 Other psychoactive substance abuse, in remission (principal); R10.2 Pelvic and perineal pain
CPT/HCPCS: 87086

== ENCOUNTER 2018-09-19 13:02 | Emergency (ER) | payer OTHER ==
[~2018-09-19] VITALS: Ht 154.9 cm; Wt 48.5 kg
[2018-09-19] MEDS ORDERED: PENVK500 PO (13:33)
== END 2018-09-19 13:54 | disposition home or self-care (01) ==
LOC: ER 13:02
DX: K04.7 Periapical abscess without sinus (principal); Z88.0 Allergy status to penicillin; Z88.5 Allergy status to narcotic agent; Z79.899 Other long term (current) drug therapy
CPT/HCPCS: 64400; 99282-25

== ENCOUNTER → 2018-09-23 | Outpatient (CLI) | payer OTHER ==
[~2018-09-23] MED LIST changes: +BUPRENORPHINE; +BUPRENORPHINE HC2 MG SL; +BUPRENORPHINE SL; +NAUSEA MED; +PENVK500 PO; +Sodium Chlorid250 M1 IV; +Zantac150 MG PO
[2018-09-23 12:35] LABS: U Amphetamine Screen Not Detected; U Barbituate Screen Not Detected; U Benzodiazapine Screen Not Detected; U Buprenorphine Screen DETECTED; U Cannabinoids Screen Not Detected; U Cocaine Screen Not Detected; U Methadone Screen Not Detected; U Methamphetamine Screen Not Detected; U Opiates Screen Not Detected; U Oxycodone Screen Not Detected; U Phencyclidine Screen Not Detected; U Propoxyphene Screen Not Detected
== END | disposition home or self-care (01) ==
LOC: LAB 11:32 → LAB SHORT 11:32
PROVIDERS: Family Medicine
DX: F19.11 Other psychoactive substance abuse, in remission (principal)
CPT/HCPCS: G0480

== ENCOUNTER → 2018-11-01 | Outpatient (CLI) | payer OTHER ==
[2018-11-01 18:11] LABS: U Amphetamine Screen Not Detected; U Barbituate Screen Not Detected; U Methamphetamine Screen Not Detected
[2018-11-01 18:12] LABS: U Benzodiazapine Screen Not Detected; U Buprenorphine Screen DETECTED; U Cannabinoids Screen Not Detected; U Cocaine Screen Not Detected; U Methadone Screen Not Detected; U Opiates Screen Not Detected; U Oxycodone Screen Not Detected; U Phencyclidine Screen Not Detected; U Propoxyphene Screen Not Detected
== END | disposition home or self-care (01) ==
LOC: LAB SHORT 15:32 → LAB 15:32
PROVIDERS: Family Medicine
DX: F19.11 Other psychoactive substance abuse, in remission (principal)

== ENCOUNTER → 2018-11-08 | Outpatient (CLI) | payer OTHER ==
[2018-11-08 13:17] LABS: U Amphetamine Screen Not Detected; U Barbituate Screen Not Detected; U Benzodiazapine Screen Not Detected; U Cannabinoids Screen Not Detected; U Cocaine Screen Not Detected; U Methadone Screen Not Detected; U Methamphetamine Screen Not Detected; U Opiates Screen Not Detected; U Oxycodone Screen Not Detected; U Phencyclidine Screen Not Detected; U Propoxyphene Screen Not Detected
[2018-11-15 12:25] LABS: U Buprenorphine Screen DETECTED
== END | disposition home or self-care (01) ==
LOC: LAB 12:41 → LAB SHORT 12:41
PROVIDERS: Family Medicine
DX: F19.11 Other psychoactive substance abuse, in remission (principal)

== ENCOUNTER → 2018-11-22 | Outpatient (CLI) | payer OTHER ==
[2018-11-22 17:44] LABS: U Amphetamine Screen Not Detected; U Barbituate Screen Not Detected; U Benzodiazapine Screen Not Detected; U Buprenorphine Screen DETECTED; U Cannabinoids Screen Not Detected; U Cocaine Screen Not Detected; U Methadone Screen Not Detected; U Methamphetamine Screen Not Detected; U Opiates Screen Not Detected; U Oxycodone Screen Not Detected; U Phencyclidine Screen Not Detected; U Propoxyphene Screen Not Detected
== END | disposition home or self-care (01) ==
LOC: LAB SHORT 16:33 → LAB 16:33
PROVIDERS: Family Medicine
DX: F19.11 Other psychoactive substance abuse, in remission (principal)
CPT/HCPCS: G0480

== ENCOUNTER → 2018-12-09 | Outpatient (CLI) | payer OTHER ==
[2018-12-09 17:40] LABS: U Amphetamine Screen Not Detected; U Barbituate Screen Not Detected; U Benzodiazapine Screen Not Detected; U Buprenorphine Screen DETECTED; U Cannabinoids Screen Not Detected; U Cocaine Screen Not Detected; U Methadone Screen Not Detected; U Methamphetamine Screen Not Detected; U Opiates Screen Not Detected; U Oxycodone Screen Not Detected; U Phencyclidine Screen Not Detected; U Propoxyphene Screen Not Detected
== END | disposition home or self-care (01) ==
LOC: LAB SHORT 15:55 → LAB 15:55
PROVIDERS: Family Medicine
DX: F19.11 Other psychoactive substance abuse, in remission (principal)
CPT/HCPCS: G0480

== ENCOUNTER → 2018-12-21 | Outpatient (CLI) | payer OTHER ==
[2018-12-21 13:50] LABS: U Amphetamine Screen Not Detected; U Barbituate Screen Not Detected; U Benzodiazapine Screen Not Detected; U Buprenorphine Screen DETECTED; U Cannabinoids Screen Not Detected; U Cocaine Screen Not Detected; U Methadone Screen Not Detected; U Methamphetamine Screen Not Detected; U Opiates Screen Not Detected; U Oxycodone Screen Not Detected; U Phencyclidine Screen Not Detected; U Propoxyphene Screen Not Detected
== END | disposition home or self-care (01) ==
LOC: LAB SHORT 11:21 → LAB 11:21
PROVIDERS: Family Medicine
DX: F19.11 Other psychoactive substance abuse, in remission (principal)
CPT/HCPCS: G0480

== ENCOUNTER → 2018-12-24 | Outpatient (CLI) | payer OTHER | END | disposition home or self-care (01) | LOC: LAB 10:49 → LAB SHORT 10:49 | DX: Z32.00 Encounter for pregnancy test, result unknown (principal) | CPT/HCPCS: 84702 ==

== ENCOUNTER → 2018-12-28 | Outpatient (CLI) | payer OTHER ==
[2018-12-28 18:29] LABS: U Amphetamine Screen Not Detected; U Barbituate Screen Not Detected; U Benzodiazapine Screen Not Detected; U Buprenorphine Screen DETECTED; U Cannabinoids Screen Not Detected; U Cocaine Screen Not Detected; U Methadone Screen Not Detected; U Methamphetamine Screen Not Detected; U Opiates Screen Not Detected; U Oxycodone Screen Not Detected; U Phencyclidine Screen Not Detected; U Propoxyphene Screen Not Detected
== END ==
LOC: LAB SHORT 16:03 → LAB 16:03
PROVIDERS: Family Medicine
DX: Z34.81 Encounter for supervision of other normal pregnancy, first trimester (principal)
CPT/HCPCS: G0480

== ENCOUNTER 2018-12-29 15:59 | Emergency (ER) | payer OTHER ==
[~2018-12-29] VITALS: Ht 154.9 cm; Wt 48.1 kg
[~2018-12-29 15:59] MED LIST changes: -BUPRENORPHINE; -BUPRENORPHINE HC2 MG SL; -BUPRENORPHINE SL; -NAUSEA MED; -Sodium Chlorid250 M1 IV; -Zantac150 MG PO
[2018-12-29] MEDS ORDERED: BUPRENORPHINE (16:47)
[2018-12-29] MEDS ORDERED: BUPRENORPHINE SL (16:48)
[2018-12-29 17:16] LABS: Source, Urine Clean Catch
[2018-12-29 17:18] LABS: Bilirubin, Urine Neg (Neg); Blood, Urine 1+ (Neg); Glucose Qualitative, Urine Neg (Neg); Ketones, Urine 3+ (Neg); Leukocyte Esterase, Urine 1+ (Neg); Nitrite, Urine Neg (Neg); Protein, Urine Neg (Neg); Urobilinogen, Urine NORM (Normal)
[2018-12-29 17:23] LABS: Appearance, Urine Clear (Clear); Color, Urine Yellow (P-Yellow)
[2018-12-29 17:24] LABS: Bacteria Few /hpf; Mucus Light (0-Heavy); Red Blood Cells, Urine 0-2 /hpf (0-2); Squamous Epithelial Cells Few /hpf (Few)
[2018-12-29] MEDS ORDERED: ONDA4ODT MM (18:20)
== END 2018-12-29 18:32 | disposition home or self-care (01) ==
LOC: ER 15:59
PROVIDERS: Physician Assistant
DX: O21.0 Mild hyperemesis gravidarum (principal); Z88.1 Allergy status to other antibiotic agents; Z88.8 Allergy status to other drugs, medicaments and biological substances; Z79.899 Other long term (current) drug therapy; Z3A.01 Less than 8 weeks gestation of pregnancy
CPT/HCPCS: 76801; 81001; 84702; 86900; 86901; 87086; 96374; 99284-25

== ENCOUNTER 2019-01-15 07:53 | Day surgery (SDC) | payer OTHER ==
[~2019-01-15 07:53] MED LIST changes: +BUPRENORPHINE; +BUPRENORPHINE SL
[2019-01-15] MEDS ORDERED: Zantac150 MG PO (08:17)
[2019-01-15] MEDS ORDERED: NAUSEA MED (08:19)
== END 2019-01-15 09:18 | disposition home or self-care (01) ==
LOC: ATC 07:53
DX: R11.2 Nausea with vomiting, unspecified (principal)
CPT/HCPCS: 96365; J3411; J3475; J7042

== ENCOUNTER 2019-01-18 00:05 | Day surgery (SDC) | payer OTHER ==
[~2019-01-18 00:05] MED LIST changes: +NAUSEA MED; +Zantac150 MG PO
== END 2019-01-18 16:20 | disposition home or self-care (01) ==
LOC: ATC 00:05
DX: O21.9 Vomiting of pregnancy, unspecified (principal); Z87.51 Personal history of pre-term labor; Z79.899 Other long term (current) drug therapy; O99.321 Drug use complicating pregnancy, first trimester; F19.11 Other psychoactive substance abuse, in remission
CPT/HCPCS: 96360; 96365; G0480; J3411; J3475; J7042

== ENCOUNTER 2019-01-19 00:01 | Day surgery (SDC) | payer OTHER ==
--- NOTE | 2019-01-19 10:23 | NUR ---
PT CALLED RN DUE TO VOMITING. PT CLAMMY TO TOUCH. IV STOPPED. PT STATES THE IV WITH VITAMINS CAUSED A REALLY BAD HEADACH YESTERDAY. PT LYING BACK IN CHAIR WITH COOL WASHCLOTH OVER FACE. NAUSEA RESOLVED. PT MUNCHING ICE. WILL RECHECK VITALS IN 15 MINUTES.
== END 2019-01-19 11:17 | disposition home or self-care (01) ==
LOC: ATC 00:01
DX: O21.0 Mild hyperemesis gravidarum (principal); Z3A.01 Less than 8 weeks gestation of pregnancy; Z87.51 Personal history of pre-term labor; Z79.899 Other long term (current) drug therapy; Z88.5 Allergy status to narcotic agent; Z88.1 Allergy status to other antibiotic agents
CPT/HCPCS: 96360; 96365; J3411; J3475; J7042

== ENCOUNTER 2019-01-21 01:07 | Day surgery (SDC) | payer OTHER ==
[2019-01-21] MEDS ORDERED: Sodium Chlorid250 M1 IV (09:13)
== END 2019-01-21 11:18 | disposition home or self-care (01) ==
LOC: ATC 01:07
DX: O21.9 Vomiting of pregnancy, unspecified (principal); O99.511 Diseases of the respiratory system complicating pregnancy, first trimester; J45.909 Unspecified asthma, uncomplicated
CPT/HCPCS: 96360; 96361; J3411; J3475; J7030; J7042

== ENCOUNTER → 2019-01-25 | Outpatient (CLI) | payer OTHER ==
[~2019-01-25] MED LIST changes: +BUPRENORPHINE HC2 MG SL; +Sodium Chlorid250 M1 IV
[2019-01-25 13:00] LABS: U Amphetamine Screen Not Detected; U Barbituate Screen Not Detected; U Benzodiazapine Screen Not Detected; U Buprenorphine Screen DETECTED; U Cannabinoids Screen Not Detected; U Cocaine Screen Not Detected; U Methadone Screen Not Detected; U Methamphetamine Screen Not Detected; U Opiates Screen Not Detected; U Oxycodone Screen Not Detected; U Phencyclidine Screen Not Detected; U Propoxyphene Screen Not Detected
== END ==
LOC: LAB SHORT 08:45 → LAB 08:45
PROVIDERS: Family Medicine
DX: O99.321 Drug use complicating pregnancy, first trimester (principal); F19.11 Other psychoactive substance abuse, in remission
CPT/HCPCS: G0480

== ENCOUNTER 2019-01-26 00:11 | Day surgery (SDC) | payer OTHER ==
[~2019-01-26 00:11] MED LIST changes: -BUPRENORPHINE HC2 MG SL
[2019-01-26] MEDS ORDERED: METO10 PO (09:36)
[2019-01-26] MEDS ORDERED: ONDA4ODT PO (09:37)
[2019-01-26] MEDS ORDERED: BUPRENORPHINE HC2 MG SL (09:38)
[2019-01-26] MEDS ORDERED: Zantac150 MG PO (09:39)
== END 2019-01-26 11:35 | disposition home or self-care (01) ==
LOC: ATC 00:11
DX: O21.0 Mild hyperemesis gravidarum (principal)
CPT/HCPCS: 96360; 96361; J7030

== ENCOUNTER 2019-01-31 00:15 | Day surgery (SDC) | payer OTHER ==
[~2019-01-31 00:15] MED LIST changes: +BUPRENORPHINE HC2 MG SL
== END 2019-01-31 12:13 | disposition home or self-care (01) ==
LOC: ATC 00:15
DX: O21.0 Mild hyperemesis gravidarum (principal)
CPT/HCPCS: 96360; 96361; J7030

== ENCOUNTER 2019-02-06 08:23 | Day surgery (SDC) | payer OTHER | END 2019-02-06 10:41 | disposition home or self-care (01) | LOC: ATC 08:23 | DX: O21.0 Mild hyperemesis gravidarum (principal); Z3A.09 9 weeks gestation of pregnancy; Z88.1 Allergy status to other antibiotic agents; Z88.5 Allergy status to narcotic agent; Z79.899 Other long term (current) drug therapy | CPT/HCPCS: 96360; 96361; J7030 ==

== ENCOUNTER 2019-02-07 00:02 | Day surgery (SDC) | payer OTHER ==
--- NOTE | 2019-02-07 11:17 | NUR ---
POWERGLIDE IN PLACE. ORANGE CAPS PLACED. FLUSHED.
== END 2019-02-07 11:15 | disposition home or self-care (01) ==
LOC: ATC 00:02
DX: O21.0 Mild hyperemesis gravidarum (principal); Z3A.09 9 weeks gestation of pregnancy; Z88.1 Allergy status to other antibiotic agents; Z88.5 Allergy status to narcotic agent; Z79.899 Other long term (current) drug therapy
CPT/HCPCS: J7030

== ENCOUNTER → 2019-02-08 | Outpatient (CLI) | payer OTHER ==
[2019-02-08 14:33] LABS: U Amphetamine Screen Not Detected; U Barbituate Screen Not Detected; U Benzodiazapine Screen Not Detected; U Buprenorphine Screen DETECTED; U Cannabinoids Screen Not Detected; U Cocaine Screen Not Detected; U Methadone Screen Not Detected; U Methamphetamine Screen Not Detected; U Opiates Screen Not Detected; U Oxycodone Screen Not Detected; U Phencyclidine Screen Not Detected; U Propoxyphene Screen Not Detected
== END | disposition home or self-care (01) ==
LOC: LAB SHORT 12:00 → LAB 12:00
PROVIDERS: Family Medicine
DX: O99.321 Drug use complicating pregnancy, first trimester (principal); F19.11 Other psychoactive substance abuse, in remission; Z3A.11 11 weeks gestation of pregnancy

== ENCOUNTER 2019-02-14 09:05 | Day surgery (SDC) | payer OTHER | END 2019-02-14 10:49 | disposition home or self-care (01) | LOC: ATC 09:05 | DX: O21.0 Mild hyperemesis gravidarum (principal); Z3A.10 10 weeks gestation of pregnancy; Z87.51 Personal history of pre-term labor; Z88.1 Allergy status to other antibiotic agents; Z88.5 Allergy status to narcotic agent; Z79.899 Other long term (current) drug therapy | CPT/HCPCS: 96360; 96361; J7030 ==

== ENCOUNTER 2019-02-18 00:29 | Day surgery (SDC) | payer OTHER | END 2019-02-18 11:59 | disposition home or self-care (01) | LOC: ATC 00:29 | DX: O21.0 Mild hyperemesis gravidarum (principal); Z3A.00 Weeks of gestation of pregnancy not specified | CPT/HCPCS: 96360; 96361; J7030 ==

== ENCOUNTER 2019-02-21 09:00 | Day surgery (SDC) | payer OTHER | END 2019-02-21 11:43 | disposition home or self-care (01) | LOC: ATC 09:00 | DX: O21.0 Mild hyperemesis gravidarum (principal); Z3A.11 11 weeks gestation of pregnancy; Z87.51 Personal history of pre-term labor; Z79.899 Other long term (current) drug therapy; Z88.1 Allergy status to other antibiotic agents; Z88.5 Allergy status to narcotic agent | CPT/HCPCS: 96360; 96361; C1751; J7030 ==

== ENCOUNTER 2019-02-23 00:14 | Day surgery (SDC) | payer OTHER | END 2019-02-23 11:57 | disposition home or self-care (01) | LOC: ATC 00:14 | DX: O21.0 Mild hyperemesis gravidarum (principal); Z3A.11 11 weeks gestation of pregnancy; Z79.899 Other long term (current) drug therapy; Z87.51 Personal history of pre-term labor; Z88.1 Allergy status to other antibiotic agents; Z88.5 Allergy status to narcotic agent | CPT/HCPCS: 96360; 96361; J7030; J7120 ==

== ENCOUNTER 2019-02-25 00:23 | Day surgery (SDC) | payer OTHER ==
--- NOTE | 2019-02-20 15:06 | NUR ---
PT DID NOT COME TO HER 0930 SCHEDULED APPOINTMENT IN [facility] TODAY
== END 2019-02-25 11:44 | disposition home or self-care (01) ==
LOC: ATC 00:23
DX: O21.0 Mild hyperemesis gravidarum (principal); Z3A.11 11 weeks gestation of pregnancy; Z87.51 Personal history of pre-term labor; Z79.899 Other long term (current) drug therapy; Z88.0 Allergy status to penicillin; Z88.5 Allergy status to narcotic agent
CPT/HCPCS: 96360; 96361; J7030

== ENCOUNTER → 2019-03-08 | Outpatient (CLI) | payer OTHER ==
[~2019-03-08] MED LIST changes: +CLARITIN10 MG PO; +Flonase 0.05% N16 GM; +METO10SY PO; +Zithromax250 MG PO
[2019-03-08 15:36] LABS: U Amphetamine Screen Not Detected; U Barbituate Screen Not Detected; U Benzodiazapine Screen Not Detected; U Buprenorphine Screen DETECTED; U Cannabinoids Screen Not Detected; U Cocaine Screen Not Detected; U Methadone Screen Not Detected; U Methamphetamine Screen Not Detected; U Opiates Screen Not Detected; U Oxycodone Screen Not Detected; U Phencyclidine Screen Not Detected; U Propoxyphene Screen Not Detected
== END ==
LOC: LAB 09:35 → LAB SHORT 09:35
PROVIDERS: Family Medicine
DX: O99.322 Drug use complicating pregnancy, second trimester (principal); F19.11 Other psychoactive substance abuse, in remission; Z3A.15 15 weeks gestation of pregnancy
CPT/HCPCS: G0480

== ENCOUNTER 2019-03-10 07:44 | Day surgery (SDC) | payer OTHER ==
[~2019-03-10 07:44] MED LIST changes: -CLARITIN10 MG PO; -Flonase 0.05% N16 GM; -METO10SY PO; -Zithromax250 MG PO
== END 2019-03-10 23:09 | disposition home or self-care (01) ==
LOC: ATC 07:44
DX: O21.0 Mild hyperemesis gravidarum (principal); Z3A.13 13 weeks gestation of pregnancy; Z79.899 Other long term (current) drug therapy; Z87.51 Personal history of pre-term labor; Z88.1 Allergy status to other antibiotic agents; Z88.5 Allergy status to narcotic agent
CPT/HCPCS: 96360; 96361; J7030

== ENCOUNTER 2019-03-16 09:00 | Day surgery (SDC) | payer OTHER ==
[2019-03-16] MEDS ORDERED: METO10SY PO (18:24)
== END 2019-03-16 11:25 | disposition home or self-care (01) ==
LOC: ATC 09:00
DX: O21.0 Mild hyperemesis gravidarum (principal); Z87.51 Personal history of pre-term labor; Z3A.17 17 weeks gestation of pregnancy; Z79.899 Other long term (current) drug therapy; Z88.1 Allergy status to other antibiotic agents; Z88.5 Allergy status to narcotic agent
CPT/HCPCS: 96360; 96361; J7030

== ENCOUNTER 2019-03-16 18:13 | Emergency (ER) | payer OTHER ==
[~2019-03-16] VITALS: Ht 154.9 cm; Wt 46.3 kg
[2019-03-16] MEDS ORDERED: METO10SY PO (18:24)
[2019-03-16 18:38] LABS: Source, Urine Clean Catch
[2019-03-16 18:42] LABS: Bilirubin, Urine Neg (Neg); Blood, Urine Neg (Neg); Glucose Qualitative, Urine Neg (Neg); Ketones, Urine 1+ (Neg); Leukocyte Esterase, Urine Neg (Neg); Nitrite, Urine Neg (Neg); Protein, Urine Neg (Neg); Urobilinogen, Urine 1+ (Normal)
[2019-03-16 19:06] LABS: Appearance, Urine Clear (Clear); Color, Urine Yellow (P-Yellow)
[2019-03-16 19:55] LABS: BASOPHILS ABSOLUTE AUTO 0.02 K/mm3 (0.00-0.23); BASOPHILS PERCENT AUTO 0 % (0-2); EOSINOPHILS ABSOLUTE AUTO 0.04 K/mm3 (0.00-0.68); EOSINOPHILS PERCENT AUTO 1 % (0-6); Hematocrit 30.8 % (33.0-51.0); Hemoglobin 10.4 g/dL (11.5-16.0); IMMATURE GRAN ABSOLUTE AUTO 0.03 K/mm3 (0.00-0.10); IMMATURE GRAN PERCENT AUTO 1 % (0-1); LYMPHOCYTES ABSOLUTE AUTO 2.65 K/mm3 (0.84-5.20); LYMPHOCYTES PERCENT AUTO 40 % (21-46); MONOCYTES ABSOLUTE AUTO 0.44 K/mm3 (0.16-1.47); MONOCYTES PERCENT AUTO 7 % (4-13); Mean Corpuscular HGB 30.8 pg (26.0-34.0); Mean Corpuscular HGB Conc 33.8 g/dL (31.5-36.5); Mean Corpuscular Volume 91 fL (80-100); Mean Platelet Volume 10.8 fL (9.1-12.4); NEUTROPHILS PERCENT AUTO 52 % (41-73); Platelet Count 184 K/mm3 (150-400); RDW Coefficient Variation 13.2 % (11.7-14.2); RDW Standard Deviation 44.1 fL (35.1-46.3); Red Blood Cell Count 3.38 M/mm3 (3.80-5.20); White Blood Cell Count 6.58 K/mm3 (4.00-11.30)
[2019-03-16 20:29] LABS: Alanine Aminotransfer (ALT/SGP 11 U/L (12-78); Albumin/Globulin Ratio 0.9 (0.8-1.8); Alk Phos 47 U/L (50-136); Anion Gap 5 mmol/L (6-16); Aspartate Aminotrans (AST/SGOT 10 U/L (12-37); Bilirubin, Total 0.6 mg/dL (0.1-1.0); Blood Urea Nitrogen 9 mg/dL (8-24); Bun/Creatinine Ratio 22.5 (12.0-20.0); CO2, Blood 24 mmol/L (21-32); Calcium, Blood 8.2 mg/dL (8.5-10.1); Chloride, Blood 110 mmol/L (98-108); Globulin, Blood 3.2 g/dL (2.2-4.0); Glomerular Filtration Rate >60 (60-); Glucose, Blood 86 mg/dL (70-99); Potassium, Blood 3.2 mmol/L (3.5-5.5); Sodium, Blood 139 mmol/L (136-145); Total Protein, Blood 6.2 g/dL (6.4-8.2)
[2019-03-16 20:41] LABS: Beta HCG, Quantitative, Serum 19092 mIU/mL (0-3)
[2019-03-16 21:00] LABS: U Amphetamine Screen Not Detected; U Barbituate Screen Not Detected; U Benzodiazapine Screen Not Detected; U Buprenorphine Screen DETECTED; U Cannabinoids Screen Not Detected; U Cocaine Screen Not Detected; U Methadone Screen Not Detected; U Methamphetamine Screen Not Detected; U Opiates Screen Not Detected; U Oxycodone Screen Not Detected; U Phencyclidine Screen Not Detected; U Propoxyphene Screen Not Detected
== END 2019-03-16 21:32 | disposition home or self-care (01) ==
LOC: ER 18:13
PROVIDERS: Emergency Medicine; Physician Assistant
DX: O99.89 Other specified diseases and conditions complicating pregnancy, childbirth and the puerperium (principal); M54.6 Pain in thoracic spine; Z88.0 Allergy status to penicillin; Z88.8 Allergy status to other drugs, medicaments and biological substances; Z3A.17 17 weeks gestation of pregnancy
CPT/HCPCS: 36415; 76805; 80053; 81003; 83690; 84702; 85025; 86900; 86901; 96360; 96361; 99284-25; J7030

== ENCOUNTER 2019-03-18 00:31 | Day surgery (SDC) | payer OTHER ==
[~2019-03-18 00:31] MED LIST changes: +METO10SY PO
== END 2019-03-18 11:44 | disposition home or self-care (01) ==
LOC: ATC 00:31
DX: O21.0 Mild hyperemesis gravidarum (principal); Z3A.17 17 weeks gestation of pregnancy; Z87.51 Personal history of pre-term labor; Z79.899 Other long term (current) drug therapy; Z88.1 Allergy status to other antibiotic agents; Z88.5 Allergy status to narcotic agent
CPT/HCPCS: 96360; 96361; J7030

== ENCOUNTER 2019-04-04 00:10 | Day surgery (SDC) | payer OTHER | END 2019-04-04 23:02 | disposition home or self-care (01) | LOC: ATC 00:10 | DX: O21.0 Mild hyperemesis gravidarum (principal); Z3A.19 19 weeks gestation of pregnancy; Z87.51 Personal history of pre-term labor; Z88.1 Allergy status to other antibiotic agents; Z88.5 Allergy status to narcotic agent; Z79.899 Other long term (current) drug therapy; O99.322 Drug use complicating pregnancy, second trimester; F19.11 Other psychoactive substance abuse, in remission | CPT/HCPCS: 96360; 96361; G0480; J7030 ==

== ENCOUNTER 2019-04-06 08:03 | Emergency (ER) | payer OTHER ==
[~2019-04-06] VITALS: Ht 157.5 cm; Wt 52.2 kg
[2019-04-06 09:06] LABS: Influenza A Negative (NEGATIVE); Influenza B Negative (NEGATIVE)
[2019-04-06] MEDS ORDERED: Zithromax250 MG PO ×2 (09:14→09:17)
[2019-04-06] MEDS ORDERED: CLARITIN10 MG PO ×2 (09:15→09:17)
[2019-04-06] MEDS ORDERED: Flonase 0.05% N16 GM ×2 (09:15→09:17)
== END 2019-04-06 09:40 | disposition home or self-care (01) ==
LOC: ER 08:03
PROVIDERS: Physician Assistant
DX: O99.89 Other specified diseases and conditions complicating pregnancy, childbirth and the puerperium (principal); H66.92 Otitis media, unspecified, left ear; Z88.0 Allergy status to penicillin; Z88.8 Allergy status to other drugs, medicaments and biological substances; Z3A.20 20 weeks gestation of pregnancy
CPT/HCPCS: 87804; 99283; A9270

== ENCOUNTER 2019-04-08 00:16 | Day surgery (SDC) | payer OTHER ==
[~2019-04-08 00:16] MED LIST changes: +CLARITIN10 MG PO; +Flonase 0.05% N16 GM; +Zithromax250 MG PO
== END 2019-04-08 11:09 | disposition home or self-care (01) ==
LOC: ATC 00:16
DX: O21.0 Mild hyperemesis gravidarum (principal); Z3A.20 20 weeks gestation of pregnancy; Z87.51 Personal history of pre-term labor; Z79.899 Other long term (current) drug therapy; Z88.1 Allergy status to other antibiotic agents; Z88.5 Allergy status to narcotic agent
CPT/HCPCS: 96360; 96361; J7030

== ENCOUNTER → 2019-05-02 | Outpatient (CLI) | payer OTHER ==
[2019-05-02 18:23] LABS: U Amphetamine Screen Not Detected; U Barbituate Screen Not Detected; U Benzodiazapine Screen Not Detected; U Buprenorphine Screen DETECTED; U Cannabinoids Screen Not Detected; U Cocaine Screen Not Detected; U Methadone Screen Not Detected; U Methamphetamine Screen Not Detected; U Opiates Screen Not Detected; U Oxycodone Screen Not Detected; U Phencyclidine Screen Not Detected; U Propoxyphene Screen Not Detected
== END ==
LOC: EDSTATUS 14:14 → LAB 15:21 → LAB SHORT 15:21
PROVIDERS: Family Medicine
DX: O99.322 Drug use complicating pregnancy, second trimester (principal); Z3A.23 23 weeks gestation of pregnancy

== ENCOUNTER 2019-05-12 18:05 | Emergency (ER) | payer OTHER ==
[~2019-05-12] VITALS: Ht 154.9 cm; Wt 47.6 kg
== END 2019-05-12 21:20 | disposition home or self-care (01) ==
LOC: ER 18:05
DX: O99.89 Other specified diseases and conditions complicating pregnancy, childbirth and the puerperium (principal); M25.511 Pain in right shoulder; O9A.312 Physical abuse complicating pregnancy, second trimester; Z88.0 Allergy status to penicillin; Z88.8 Allergy status to other drugs, medicaments and biological substances; Z3A.26 26 weeks gestation of pregnancy
CPT/HCPCS: 73030; 99284-25

== ENCOUNTER → 2019-05-30 | Outpatient (CLI) | payer OTHER ==
[2019-05-30 17:47] LABS: U Amphetamine Screen Not Detected; U Barbituate Screen Not Detected; U Benzodiazapine Screen Not Detected; U Buprenorphine Screen DETECTED; U Cannabinoids Screen Not Detected; U Cocaine Screen Not Detected; U Methadone Screen Not Detected; U Methamphetamine Screen Not Detected; U Opiates Screen Not Detected; U Oxycodone Screen Not Detected; U Phencyclidine Screen Not Detected; U Propoxyphene Screen Not Detected
== END ==
LOC: LAB SHORT 16:14 → LAB 16:14
PROVIDERS: Family Medicine
DX: O99.322 Drug use complicating pregnancy, second trimester (principal); F19.11 Other psychoactive substance abuse, in remission; Z3A.27 27 weeks gestation of pregnancy

== ENCOUNTER → 2019-06-29 | Outpatient (CLI) | payer OTHER ==
[2019-06-29 17:22] LABS: U Amphetamine Screen Not Detected; U Barbituate Screen Not Detected; U Benzodiazapine Screen Not Detected; U Buprenorphine Screen DETECTED; U Cannabinoids Screen Not Detected; U Cocaine Screen Not Detected; U Methadone Screen Not Detected; U Methamphetamine Screen Not Detected; U Opiates Screen Not Detected; U Oxycodone Screen Not Detected; U Phencyclidine Screen Not Detected; U Propoxyphene Screen Not Detected
== END | disposition home or self-care (01) ==
LOC: LAB 16:52 → LAB SHORT 16:52
PROVIDERS: Family Medicine
DX: O99.323 Drug use complicating pregnancy, third trimester (principal); F19.11 Other psychoactive substance abuse, in remission; Z3A.32 32 weeks gestation of pregnancy

== ENCOUNTER 2019-07-07 19:20 | Emergency (ER) | payer SELFPAY ==
[~2019-07-07] VITALS: Ht 154.9 cm; Wt 50.8 kg
== END 2019-07-07 21:10 | disposition other institution (70) ==
LOC: ER 19:20
DX: O99.89 Other specified diseases and conditions complicating pregnancy, childbirth and the puerperium (principal); M25.552 Pain in left hip; Z3A.33 33 weeks gestation of pregnancy; V49.9XXA Car occupant (driver) (passenger) injured in unspecified traffic accident, initial encounter
CPT/HCPCS: 72040; 76815; 99285-25

== ENCOUNTER → 2019-07-12 | Outpatient (CLI) | payer OTHER ==
[2019-07-12 17:57] LABS: U Amphetamine Screen Not Detected; U Barbituate Screen Not Detected; U Benzodiazapine Screen Not Detected; U Buprenorphine Screen DETECTED; U Cannabinoids Screen Not Detected; U Cocaine Screen Not Detected; U Methadone Screen Not Detected; U Methamphetamine Screen Not Detected; U Opiates Screen Not Detected; U Oxycodone Screen Not Detected; U Phencyclidine Screen Not Detected; U Propoxyphene Screen Not Detected
== END | disposition home or self-care (01) ==
LOC: LAB SHORT 15:25 → LAB 15:25
PROVIDERS: Family Medicine
DX: O99.323 Drug use complicating pregnancy, third trimester (principal); F19.11 Other psychoactive substance abuse, in remission; Z3A.33 33 weeks gestation of pregnancy

== ENCOUNTER 2019-08-10 15:24 | Inpatient (IN) | payer OTHER ==
[~2019-08-10] VITALS: Ht 154.9 cm; Wt 55.5 kg
[2019-08-10] MEDS ORDERED: ACYC800 PO (21:04)
[2019-08-10] MEDS ORDERED: BUPRENORPHINE HC2 MG SL (21:05)
[2019-08-11 10:16] LABS: BASOPHILS ABSOLUTE AUTO 0.02 K/mm3 (0.00-0.23); BASOPHILS PERCENT AUTO 0 % (0-2); EOSINOPHILS ABSOLUTE AUTO 0.06 K/mm3 (0.00-0.68); EOSINOPHILS PERCENT AUTO 1 % (0-6); Hematocrit 28.7 % (33.0-51.0); Hemoglobin 9.1 g/dL (11.5-16.0); IMMATURE GRAN ABSOLUTE AUTO 0.02 K/mm3 (0.00-0.10); IMMATURE GRAN PERCENT AUTO 0 % (0-1); LYMPHOCYTES ABSOLUTE AUTO 3.24 K/mm3 (0.84-5.20); LYMPHOCYTES PERCENT AUTO 52 % (21-46); MONOCYTES ABSOLUTE AUTO 0.36 K/mm3 (0.16-1.47); MONOCYTES PERCENT AUTO 6 % (4-13); Mean Corpuscular HGB 26.5 pg (26.0-34.0); Mean Corpuscular HGB Conc 31.7 g/dL (31.5-36.5); Mean Corpuscular Volume 83 fL (80-100); Mean Platelet Volume 12.6 fL (9.1-12.4); NEUTROPHILS ABSOLUTE AUTO 2.52 K/mm3 (1.96-9.15); NEUTROPHILS PERCENT AUTO 41 % (41-73); Platelet Count 166 K/mm3 (150-400); RDW Coefficient Variation 12.4 % (11.7-14.2); RDW Standard Deviation 37.6 fL (35.1-46.3); Red Blood Cell Count 3.44 M/mm3 (3.80-5.20); White Blood Cell Count 6.22 K/mm3 (4.00-11.30)
[2019-08-11 14:42] LABS: Hematocrit 30.1 % (33.0-51.0); Hemoglobin 9.8 g/dL (11.5-16.0)
[2019-08-11 15:00] LABS: U Amphetamine Screen Not Detected; U Barbituate Screen Not Detected; U Benzodiazapine Screen Not Detected; U Buprenorphine Screen Not Detected; U Cannabinoids Screen Not Detected; U Cocaine Screen Not Detected; U Methadone Screen Not Detected; U Methamphetamine Screen Not Detected; U Opiates Screen DETECTED; U Oxycodone Screen Not Detected; U Phencyclidine Screen Not Detected; U Propoxyphene Screen Not Detected
[2019-08-12 05:51] LABS: Hematocrit 24.2 % (33.0-51.0); Hemoglobin 7.8 g/dL (11.5-16.0); Mean Corpuscular HGB 26.2 pg (26.0-34.0); Mean Corpuscular HGB Conc 32.2 g/dL (31.5-36.5); Mean Corpuscular Volume 81 fL (80-100); Mean Platelet Volume 12.7 fL (9.1-12.4); Platelet Count 179 K/mm3 (150-400); RDW Coefficient Variation 12.4 % (11.7-14.2); Red Blood Cell Count 2.98 M/mm3 (3.80-5.20); White Blood Cell Count 10.15 K/mm3 (4.00-11.30)
[2019-08-13] MEDS ORDERED: IBUP800 PO (18:47)
[2019-08-13] MEDS ORDERED: Percocet 5-3251 EACH PO (18:47)
== END 2019-08-14 15:15 | disposition home or self-care (01) | DRG 787 ==
LOC: OBS 15:24 → BC 15:24 → OBS 20:41 → BC 08-11 08:09
PROVIDERS: ADMIT Family Medicine
PROC: 10D00Z1 Extraction of Products of Conception, Low, Open Approach (ICD-10-PCS; principal; 2019-08-11 11:00)
DX: O98.32 Other infections with a predominantly sexual mode of transmission complicating childbirth (principal); O72.1 Other immediate postpartum hemorrhage; O99.324 Drug use complicating childbirth; A60.04 Herpesviral vulvovaginitis; Z3A.38 38 weeks gestation of pregnancy; Z37.0 Single live birth; O99.03 Anemia complicating the puerperium; D50.0 Iron deficiency anemia secondary to blood loss (chronic); F11.11 Opioid abuse, in remission
CPT/HCPCS: 36415; 59025; 85014; 85018; 85025; 85027; 86850; 86900; 86901; A9270-GY; G0378; G0480; J1885; J2210; J2370; J2405; J2590; J2765; J3010; J7120

== ENCOUNTER → 2019-09-27 | Outpatient (CLI) | payer OTHER ==
[~2019-09-27] MED LIST changes: +ACYC800 PO; +Percocet 5-3251 EACH PO
[2019-09-28 18:08] LABS: HPV 16 Negative (Negative); HPV 18 Negative (Negative); HPV OTHER HR TYPES Negative (Negative)
== END | disposition home or self-care (01) ==
LOC: LAB 14:16 → LAB SHORT 14:16
PROVIDERS: Family Medicine
DX: R87.612 Low grade squamous intraepithelial lesion on cytologic smear of cervix (LGSIL) (principal); R87.618 Other abnormal cytological findings on specimens from cervix uteri
CPT/HCPCS: 87624; 88305; G0123

== ENCOUNTER → 2019-11-03 | Outpatient (CLI) | payer OTHER ==
[2019-11-03 20:01] LABS: U Amphetamine Screen Not Detected; U Barbituate Screen Not Detected; U Benzodiazapine Screen Not Detected; U Buprenorphine Screen DETECTED; U Cannabinoids Screen Not Detected; U Cocaine Screen Not Detected; U Methadone Screen Not Detected; U Methamphetamine Screen Not Detected; U Opiates Screen Not Detected; U Oxycodone Screen Not Detected; U Phencyclidine Screen Not Detected; U Propoxyphene Screen Not Detected
== END | disposition home or self-care (01) ==
LOC: LAB 18:12 → LAB SHORT 18:12
PROVIDERS: Family Medicine
DX: F19.11 Other psychoactive substance abuse, in remission (principal)
CPT/HCPCS: G0480

== ENCOUNTER → 2019-11-30 | Outpatient (CLI) | payer OTHER ==
[2019-11-30 17:44] LABS: U Amphetamine Screen Not Detected; U Barbituate Screen Not Detected; U Benzodiazapine Screen Not Detected; U Buprenorphine Screen DETECTED; U Cannabinoids Screen Not Detected; U Cocaine Screen Not Detected; U Methadone Screen Not Detected; U Methamphetamine Screen Not Detected; U Opiates Screen Not Detected; U Oxycodone Screen Not Detected; U Phencyclidine Screen Not Detected; U Propoxyphene Screen Not Detected
== END | disposition home or self-care (01) ==
LOC: LAB 14:06 → LAB SHORT 14:06
PROVIDERS: Family Medicine
DX: F19.11 Other psychoactive substance abuse, in remission (principal)
CPT/HCPCS: G0480

== ENCOUNTER → 2020-01-02 | Outpatient (CLI) | payer OTHER ==
[2020-01-02 12:45] LABS: U Amphetamine Screen Not Detected; U Barbituate Screen Not Detected; U Benzodiazapine Screen Not Detected; U Buprenorphine Screen DETECTED; U Cannabinoids Screen Not Detected; U Cocaine Screen Not Detected; U Methadone Screen Not Detected; U Methamphetamine Screen Not Detected; U Opiates Screen Not Detected; U Oxycodone Screen Not Detected; U Phencyclidine Screen Not Detected; U Propoxyphene Screen Not Detected
== END | disposition home or self-care (01) ==
LOC: LAB 11:36 → LAB SHORT 11:36
PROVIDERS: Family Medicine
DX: F19.11 Other psychoactive substance abuse, in remission (principal)
CPT/HCPCS: G0480

== ENCOUNTER → 2020-02-23 | Outpatient (CLI) | payer OTHER ==
[2020-02-23 17:45] LABS: U Amphetamine Screen Not Detected; U Barbituate Screen Not Detected; U Benzodiazapine Screen Not Detected; U Buprenorphine Screen DETECTED; U Cannabinoids Screen Not Detected; U Cocaine Screen Not Detected; U Methadone Screen Not Detected; U Methamphetamine Screen Not Detected; U Opiates Screen Not Detected; U Oxycodone Screen Not Detected; U Phencyclidine Screen Not Detected; U Propoxyphene Screen Not Detected
== END ==
LOC: LAB 11:54 → LAB SHORT 11:54
PROVIDERS: Family Medicine
DX: F19.11 Other psychoactive substance abuse, in remission (principal)
CPT/HCPCS: G0480

== ENCOUNTER → 2020-03-26 | Outpatient (CLI) | payer OTHER ==
[2020-03-26 19:38] LABS: U Amphetamine Screen Not Detected; U Barbituate Screen Not Detected; U Benzodiazapine Screen Not Detected; U Buprenorphine Screen DETECTED; U Cannabinoids Screen Not Detected; U Cocaine Screen Not Detected; U Methadone Screen Not Detected; U Methamphetamine Screen Not Detected; U Opiates Screen Not Detected; U Oxycodone Screen Not Detected; U Phencyclidine Screen Not Detected; U Propoxyphene Screen Not Detected
== END ==
LOC: LAB SHORT 18:19
PROVIDERS: Family Medicine
DX: F11.20 Opioid dependence, uncomplicated (principal)
CPT/HCPCS: G0480

== ENCOUNTER → 2020-08-30 | Outpatient (CLI) | payer OTHER ==
[2020-08-30 12:52] LABS: U Amphetamine Screen Not Detected; U Barbituate Screen Not Detected; U Benzodiazapine Screen Not Detected; U Cannabinoids Screen Not Detected; U Cocaine Screen Not Detected; U Methadone Screen Not Detected; U Methamphetamine Screen Not Detected; U Opiates Screen Not Detected; U Phencyclidine Screen Not Detected
[2020-08-30 12:53] LABS: U Buprenorphine Screen DETECTED; U Oxycodone Screen Not Detected; U Propoxyphene Screen Not Detected
== END | disposition home or self-care (01) ==
LOC: LAB 10:59 → LAB SHORT 10:59
PROVIDERS: Family Medicine
DX: F11.20 Opioid dependence, uncomplicated (principal)
CPT/HCPCS: G0480

== ENCOUNTER → 2020-10-24 | Outpatient (CLI) | payer OTHER ==
[2020-10-24 19:16] LABS: U Amphetamine Screen Not Detected; U Barbituate Screen Not Detected; U Benzodiazapine Screen Not Detected; U Buprenorphine Screen DETECTED; U Cannabinoids Screen Not Detected; U Cocaine Screen Not Detected; U Methadone Screen Not Detected; U Methamphetamine Screen Not Detected; U Opiates Screen Not Detected; U Oxycodone Screen Not Detected; U Phencyclidine Screen Not Detected; U Propoxyphene Screen Not Detected
== END | disposition home or self-care (01) ==
LOC: LAB SHORT 16:41 → LAB 16:41
PROVIDERS: Family Medicine
DX: F11.20 Opioid dependence, uncomplicated (principal)

== ENCOUNTER → 2020-12-01 | Outpatient (CLI) | payer OTHER | END | disposition home or self-care (01) | LOC: LAB SHORT 15:02 → LAB 15:02 | DX: Z20.822 Contact with and (suspected) exposure to COVID-19 (principal) | CPT/HCPCS: U0003 ==

== ENCOUNTER → 2020-12-19 | Outpatient (CLI) | payer OTHER ==
[2020-12-19 18:07] LABS: U Amphetamine Screen Not Detected; U Barbituate Screen Not Detected; U Benzodiazapine Screen Not Detected; U Cannabinoids Screen Not Detected; U Cocaine Screen Not Detected; U Methadone Screen Not Detected; U Methamphetamine Screen Not Detected; U Opiates Screen Not Detected; U Oxycodone Screen Not Detected; U Phencyclidine Screen Not Detected; U Propoxyphene Screen Not Detected
[2020-12-19 18:14] LABS: U Buprenorphine Screen DETECTED
== END | disposition home or self-care (01) ==
LOC: LAB 14:06 → LAB SHORT 14:06
PROVIDERS: Family Medicine
DX: F11.20 Opioid dependence, uncomplicated (principal)

== ENCOUNTER 2020-12-28 14:57 | Emergency (ER) | payer OTHER ==
[~2020-12-28] VITALS: Ht 154.9 cm; Wt 48.1 kg
[2020-12-28] MEDS ORDERED: ONDA4ODT MM (15:27)
== END 2020-12-28 15:43 | disposition home or self-care (01) ==
LOC: ER 14:57
DX: S00.83XA Contusion of other part of head, initial encounter (principal); Z88.0 Allergy status to penicillin; Z88.8 Allergy status to other drugs, medicaments and biological substances; W22.8XXA Striking against or struck by other objects, initial encounter
CPT/HCPCS: 99283; A9270

== ENCOUNTER → 2021-01-29 | Outpatient (CLI) | payer OTHER ==
[2021-02-05 14:08] LABS: HPV 16 Negative (Negative); HPV 18 Negative (Negative); HPV OTHER HR TYPES Negative (Negative)
== END ==
LOC: LAB SHORT 12:50 → LAB 12:50
PROVIDERS: Family Medicine
DX: Z12.4 Encounter for screening for malignant neoplasm of cervix (principal)
CPT/HCPCS: 87624; G0123

== ENCOUNTER 2021-10-07 16:10 | Emergency (ER) | payer OTHER ==
[~2021-10-07] VITALS: Ht 154.9 cm; Wt 48.1 kg
[2021-10-07] MEDS ORDERED: CEPH500 PO (16:42)
== END 2021-10-07 17:08 | disposition home or self-care (01) ==
LOC: ER 16:10
DX: L25.9 Unspecified contact dermatitis, unspecified cause (principal); Z88.0 Allergy status to penicillin; Z88.8 Allergy status to other drugs, medicaments and biological substances; Z79.899 Other long term (current) drug therapy
CPT/HCPCS: J3301

== ENCOUNTER → 2022-02-19 | Outpatient (CLI) | payer OTHER ==
[2022-02-19 11:58] LABS: BASOPHILS ABSOLUTE AUTO 0.02 K/mm3 (0.00-0.23); BASOPHILS PERCENT AUTO 0 % (0-2); EOSINOPHILS ABSOLUTE AUTO 0.02 K/mm3 (0.00-0.68); EOSINOPHILS PERCENT AUTO 0 % (0-6); Hematocrit 38.1 % (33.0-51.0); Hemoglobin 12.6 g/dL (11.5-16.0); IMMATURE GRAN ABSOLUTE AUTO 0.03 K/mm3 (0.00-0.10); IMMATURE GRAN PERCENT AUTO 1 % (0-1); LYMPHOCYTES ABSOLUTE AUTO 1.09 K/mm3 (0.84-5.20); LYMPHOCYTES PERCENT AUTO 20 % (21-46); MONOCYTES ABSOLUTE AUTO 0.28 K/mm3 (0.16-1.47); MONOCYTES PERCENT AUTO 5 % (4-13); Mean Corpuscular HGB 29.6 pg (26.0-34.0); Mean Corpuscular HGB Conc 33.1 g/dL (31.5-36.5); Mean Corpuscular Volume 89 fL (80-100); Mean Platelet Volume 11.5 fL (9.1-12.4); NEUTROPHILS ABSOLUTE AUTO 3.96 K/mm3 (1.96-9.15); NEUTROPHILS PERCENT AUTO 73 % (41-73); Platelet Count 183 K/mm3 (150-400); RDW Standard Deviation 42.7 fL (35.1-46.3); Red Blood Cell Count 4.26 M/mm3 (3.80-5.20)
[2022-02-19 12:17] LABS: Bun/Creatinine Ratio 16.7 (12.0-20.0); Calcium, Blood 8.6 mg/dL (8.5-10.1); Creatinine, Blood 0.54 mg/dL (0.40-1.00); Potassium, Blood 3.4 mmol/L (3.5-5.5); Thyroid Stimulating Hormone 0.542 uIU/mL (0.360-4.800)
== END | disposition home or self-care (01) ==
LOC: LAB SHORT 11:49
PROVIDERS: Physician Assistant Surgical
DX: R42 Dizziness and giddiness (principal); R53.83 Other fatigue
CPT/HCPCS: 80048; 84443; 85025

== ENCOUNTER 2023-04-27 11:15 | Emergency (ER) | payer OTHER ==
[~2023-04-27] VITALS: Ht 154.9 cm; Wt 45.4 kg
[2023-04-27 11:25] VITALS: BP 117/81
[2023-04-27 12:01] LABS: BASOPHILS ABSOLUTE AUTO 0.02 K/mm3 (0.00-0.23); BASOPHILS PERCENT AUTO 0 % (0-2); EOSINOPHILS ABSOLUTE AUTO 0.02 K/mm3 (0.00-0.68); EOSINOPHILS PERCENT AUTO 0 % (0-6); Hematocrit 37.4 % (33.0-51.0); Hemoglobin 12.7 g/dL (11.5-16.0); IMMATURE GRAN ABSOLUTE AUTO 0.02 K/mm3 (0.00-0.10); IMMATURE GRAN PERCENT AUTO 0 % (0-1); LYMPHOCYTES ABSOLUTE AUTO 1.43 K/mm3 (0.84-5.20); LYMPHOCYTES PERCENT AUTO 29 % (21-46); MONOCYTES PERCENT AUTO 6 % (4-13); Mean Corpuscular HGB 29.5 pg (26.0-34.0); Mean Corpuscular Volume 87 fL (80-100); Mean Platelet Volume 10.8 fL (9.1-12.4); NEUTROPHILS ABSOLUTE AUTO 3.08 K/mm3 (1.96-9.15); NEUTROPHILS PERCENT AUTO 63 % (41-73); Platelet Count 183 K/mm3 (150-400); RDW Coefficient Variation 13.1 % (11.7-14.2); RDW Standard Deviation 41.1 fL (35.1-46.3); Red Blood Cell Count 4.31 M/mm3 (3.80-5.20); White Blood Cell Count 4.87 K/mm3 (4.00-11.30)
[2023-04-27 12:55] LABS: Bilirubin, Total 1.1 mg/dL (0.1-1.0); Bun/Creatinine Ratio 21.6 (12.0-20.0); Calcium, Blood 9.6 mg/dL (8.5-10.1); Creatinine, Blood 0.46 mg/dL (0.40-1.00); Potassium, Blood 3.6 mmol/L (3.5-5.5)
[2023-04-27 14:07] LABS: Source, Urine Clean Catch
[2023-04-27 14:51] LABS: Appearance, Urine Hazy (Clear); Bilirubin, Urine Neg (Neg); Blood, Urine Neg (Neg); Color, Urine Yellow (P-Yellow); Glucose Qualitative, Urine Neg (Neg); Ketones, Urine 4+ (Neg); Leukocyte Esterase, Urine Neg (Neg); Nitrite, Urine Neg (Neg); Protein, Urine Neg (Neg); Specific Gravity, Urine 1.015 (1.003-1.022); Urobilinogen, Urine NORM (Normal); pH, Urine 6.5 (5.0-8.0)
[2023-04-27] MEDS ORDERED: ONDA4ODT MM (14:52)
[2023-04-27 15:09] LABS: Bacteria Many /hpf; Mucus Light (0-Heavy); Red Blood Cells, Urine 0-2 /hpf (0-2); Squamous Epithelial Cells Few /hpf (Few)
== END 2023-04-27 15:04 | disposition home or self-care (01) ==
LOC: ER 11:15
PROVIDERS: Student in an Organized Health Care Education/Training Program
DX: O21.0 Mild hyperemesis gravidarum (principal); O99.281 Endocrine, nutritional and metabolic diseases complicating pregnancy, first trimester; E86.0 Dehydration; Z3A.12 12 weeks gestation of pregnancy; Z88.0 Allergy status to penicillin; Z88.5 Allergy status to narcotic agent; Z79.899 Other long term (current) drug therapy
CPT/HCPCS: 76801; 80053; 81001; 83690; 84702; 85025; 87077; 87086; 87186; 96361; 96374; 99284-25; J2405; J7030

== ENCOUNTER 2023-05-10 18:02 | Emergency (ER) | payer OTHER ==
[~2023-05-10] VITALS: Ht 154.9 cm; Wt 44.9 kg
[2023-05-10 18:06] VITALS: BP 119/85
== END 2023-05-10 18:14 | disposition home or self-care (01) ==
LOC: ER 18:02
DX: O21.0 Mild hyperemesis gravidarum (principal); Z3A.14 14 weeks gestation of pregnancy; Z88.0 Allergy status to penicillin; Z88.5 Allergy status to narcotic agent; Z88.8 Allergy status to other drugs, medicaments and biological substances; Z79.899 Other long term (current) drug therapy
CPT/HCPCS: 99283; A9270

== ENCOUNTER 2023-09-13 14:02 | Emergency (ER) | payer OTHER ==
[~2023-09-13] VITALS: Ht 154.9 cm; Wt 52.2 kg
[2023-09-13] MEDS ORDERED: Lactated Ringer's 1,000 ML IV ONE (14:10)
[2023-09-13] MEDS ORDERED: SUBOXONE 8 MG-1 EACH SL (14:44)
[2023-09-13] MEDS ORDERED: Morphine Sulfate 4 MG/1 ML Injection IV ONE (15:45)
[2023-09-13] MEDS ORDERED: Prochlorperazine Edisylate 10 mg Vial IV ONE (15:45)
[2023-09-13] MEDS ORDERED: DiphenhydrAMINE HCl 50 MG/ML 1ML Vial IV ONE (15:45)
[2023-09-13] MEDS ORDERED: Mag Hydrox/AL Hydrox/Simeth 30 ML UDC PO ONE (16:50)
[2023-09-13] MEDS ORDERED: Lidocaine 2% Viscous Soln 15 ML UDC PO ONE (16:50)
[2023-09-13] MEDS ORDERED: Atropine/Scopalam/Hyoscam/PB 5 ML UDC PO ONE (16:50)
[2023-09-13 17:09] VITALS: BP 102/63
[2023-09-13] MEDS ORDERED: CARAFATE1 GM/10 M1 PO (17:49)
[2023-09-13] MEDS ORDERED: Omeprazole20 M1 PO (17:49)
[2023-09-13] MEDS ORDERED: ONDA4ODT MM (17:49)
== END 2023-09-13 18:03 | disposition home or self-care (01) ==
LOC: ER 14:02
DX: O99.613 Diseases of the digestive system complicating pregnancy, third trimester (principal); K29.70 Gastritis, unspecified, without bleeding; O47.03 False labor before 37 completed weeks of gestation, third trimester; Z3A.32 32 weeks gestation of pregnancy; Z79.899 Other long term (current) drug therapy; Z88.0 Allergy status to penicillin; Z88.5 Allergy status to narcotic agent; Z88.8 Allergy status to other drugs, medicaments and biological substances
CPT/HCPCS: 36415; 59025; 76815; 76817; 76819; 80053; 81003; 82150; 83690; 85025; 96361; 96374; 96375; 99214; 99284-25; A9270; C9113; J0780; J1200; J2270; J2405; J7120

== ENCOUNTER → 2023-10-06 | Outpatient (CLI) | payer OTHER ==
[~2023-10-06] MED LIST changes: +CARAFATE1 GM/10 M1 PO; +Omeprazole20 M1 PO; +SUBOXONE 8 MG-1 EACH SL
== END | disposition home or self-care (01) ==
LOC: LAB 17:33 → LAB SHORT 17:33
DX: Z34.83 Encounter for supervision of other normal pregnancy, third trimester (principal); Z3A.36 36 weeks gestation of pregnancy
CPT/HCPCS: 87081; 87150

== ENCOUNTER 2023-10-25 02:44 | Inpatient (IN) | payer OTHER ==
[~2023-10-25] VITALS: Ht 154.9 cm; Wt 55.9 kg
[2023-10-25] VITALS (42 sets, daily range): BP systolic 93–157; BP diastolic 53–85
[2023-10-25] MEDS ORDERED: Ondansetron HCl 2 MG / ML 2ML Vial IV PRN (04:05)
[2023-10-25] MEDS ORDERED: Calcium Carbonate 500 MG Tab Chew PO PRN ×2 (04:05→08:10)
[2023-10-25] MEDS ORDERED: Oxytocin 10 Unit / ML Vial IM PRN (04:10)
[2023-10-25] MEDS ORDERED: Carboprost Tromethamine 250 MCG/ML 1ML Amp IM PRN (04:10)
[2023-10-25] MEDS ORDERED: Misoprostol 200 MCG Tab XX PRN (04:10)
[2023-10-25] MEDS ORDERED: OXYTOCIN/RINGER'S LACTATE 500 ML IV SCH ×3 (04:10→16:20)
[2023-10-25] MEDS ORDERED: Misoprostol 200 MCG Tab PR PRN (04:10)
[2023-10-25] MEDS ORDERED: Tranexamic Acid 100 ML IV SCH (04:10)
[2023-10-25] MEDS ORDERED: Acetaminophen 500 MG Tab PO PRN (04:10)
[2023-10-25] MEDS ORDERED: Methylergonovine Maleate 0.2MG / ML 1ML Amp IM PRN (04:10)
[2023-10-25] MEDS ORDERED: Lactated Ringer's 1,000 ML IV PRN (04:10)
[2023-10-25 04:35] LABS: BASOPHILS ABSOLUTE AUTO 0.03 K/mm3 (0.00-0.23); BASOPHILS PERCENT AUTO 0 % (0-2); EOSINOPHILS ABSOLUTE AUTO 0.06 K/mm3 (0.00-0.68); EOSINOPHILS PERCENT AUTO 1 % (0-6); Hemoglobin 9.2 g/dL (11.5-16.0); IMMATURE GRAN ABSOLUTE AUTO 0.09 K/mm3 (0.00-0.10); IMMATURE GRAN PERCENT AUTO 1 % (0-1); LYMPHOCYTES ABSOLUTE AUTO 1.99 K/mm3 (0.84-5.20); LYMPHOCYTES PERCENT AUTO 22 % (21-46); MONOCYTES ABSOLUTE AUTO 0.64 K/mm3 (0.16-1.47); MONOCYTES PERCENT AUTO 7 % (4-13); Mean Corpuscular HGB 26.1 pg (26.0-34.0); Mean Corpuscular HGB Conc 32.9 g/dL (31.5-36.5); Mean Corpuscular Volume 80 fL (80-100); Mean Platelet Volume 10.8 fL (9.1-12.4); NEUTROPHILS PERCENT AUTO 69 % (41-73); Platelet Count 209 K/mm3 (150-400); RDW Coefficient Variation 13.5 % (11.7-14.2); RDW Standard Deviation 38.8 fL (35.1-46.3); Red Blood Cell Count 3.52 M/mm3 (3.80-5.20); White Blood Cell Count 9.01 K/mm3 (4.00-11.30)
[2023-10-25] MEDS ORDERED: Lactated Ringer's 1,000 ML IV SCH ×4 (07:15→22:30)
[2023-10-25] MEDS ORDERED: ePHEDrine Sulfate 50 MG/ML 1ML Injection XX PRN (07:15)
[2023-10-25] MEDS ORDERED: FentaNYL 2mcg/ml-Bup 0.1% Epd 250 ML EPI PRN (07:15)
[2023-10-25] MEDS ORDERED: buprenorphine HCL 2 MG TAB.SUBL SL SCH (09:00)
[2023-10-25] MEDS ORDERED: Metoclopramide HCl 5MG / ML 2ML Vial IV PRN (09:45)
[2023-10-25] MEDS ORDERED: FentaNYL Citrate 50 MCG/ML 2 ML Injection ONE (10:48)
[2023-10-25] MEDS ORDERED: Lactated Ringer's 0 ML IV ONE (19:35)
[2023-10-25] MEDS ORDERED: Acetaminophen 325 MG TABLET PO PRN (22:25)
[2023-10-25] MEDS ORDERED: Naproxen 500 MG Tab PO PRN (22:25)
[2023-10-25] MEDS ORDERED: Lanolin Cream TOP PRN (22:30)
[2023-10-25] MEDS ORDERED: Benzocaine Topical Anesthetic Spray 60GM TOP PRN (22:30)
[2023-10-25] MEDS ORDERED: Docusate Sodium 100 MG Cap PO PRN (22:30)
[2023-10-25] MEDS ORDERED: Witch Hazel/Glycerin PADS TOP PRN (22:30)
[2023-10-25] MEDS ORDERED: OxyCODONE 5 mg/Acetamin 325 mg TABLET PO PRN (22:30)
[2023-10-26] MEDS ORDERED: Ketorolac Tromethamine 30mg Vial IV SCH
[2023-10-26 05:48] LABS: Hematocrit 26.9 % (33.0-51.0); Hemoglobin 8.8 g/dL (11.5-16.0); Mean Corpuscular HGB 26.1 pg (26.0-34.0); Mean Corpuscular HGB Conc 32.7 g/dL (31.5-36.5); Mean Corpuscular Volume 80 fL (80-100); Mean Platelet Volume 11.1 fL (9.1-12.4); Platelet Count 197 K/mm3 (150-400); RDW Coefficient Variation 13.5 % (11.7-14.2); RDW Standard Deviation 38.8 fL (35.1-46.3); Red Blood Cell Count 3.37 M/mm3 (3.80-5.20); White Blood Cell Count 9.16 K/mm3 (4.00-11.30)
[2023-10-26 05:51] VITALS: BP 96/56
[2023-10-26 05:52] VITALS: BP 99/58
[2023-10-26 06:12] LABS: BAND PERCENT MAN 1 % (0-8); BASOPHILS PERCENT MAN 0 % (0-2); EOSINOPHILS ABSOLUTE MAN 0.18 K/mm3 (0.00-0.68); EOSINOPHILS PERCENT MAN 2 % (0-6); LYMPHOCYTES ABSOLUTE MAN 1.83 K/mm3 (0.84-5.20); LYMPHOCYTES PERCENT MAN 20 % (21-46); MONOCYTES ABSOLUTE MAN 0.64 K/mm3 (0.16-1.47); MONOCYTES PERCENT MAN 7 % (4-13); SEG NEUTROPHILS PERCENT MAN 70 % (41-73); TOTAL CELLS COUNTED 100
[2023-10-26 07:43] VITALS: BP 112/73
[2023-10-26] MEDS ORDERED: Prenatal Vit/FE Fumarate/FA 1 Tab PO SCH (09:00)
[2023-10-26] MEDS ORDERED: Phenyleph/Mineral Oil/Petrolat 1 APPLIC/57 GM Tube PR PRN (10:05)
[2023-10-26] MEDS ORDERED: Scopolamine Hydrobromide Patch TOP ONE (13:45)
[2023-10-26 16:27] VITALS: BP 119/74
[2023-10-26] MEDS ORDERED: Ketorolac Tromethamine 30mg Vial IV PRN (16:45)
[2023-10-26 19:10] VITALS: BP 112/68
[2023-10-27 00:02] VITALS: BP 111/58
[2023-10-27 04:57] VITALS: BP 115/66
[2023-10-27] MEDS ORDERED: ACET500 PO (07:24)
[2023-10-27] MEDS ORDERED: IBUP800 PO (07:24)
[2023-10-27] MEDS ORDERED: PRENATAL TABLE1 EAC2 PO (07:24)
[2023-10-27 08:21] VITALS: BP 110/67
[2023-10-27 16:29] VITALS: BP 122/74
--- NOTE | 2023-10-27 17:28 | NUR ---
DISCHARGE INSTRUCTIONS DISCUSSED. PT VERBALIZED UNDERSTANDING. PT BEING DISCHARGED TO [facility] M[facility] STATUS AND WILL REMAIN WITH BABY FOR ESC.
== END 2023-10-27 17:30 | disposition home or self-care (01) | DRG 806 ==
LOC: OBS 02:44 → BC 02:45 → OBS 03:55 → BC 20:53
PROVIDERS: Family Medicine; ADMIT Family Medicine
PROC: 10E0XZZ Delivery of Products of Conception, External Approach (ICD-10-PCS; principal; 2023-10-25)
PROC: 10907ZC Drainage of Amniotic Fluid, Therapeutic from Products of Conception, Via Natural or Artificial Opening (ICD-10-PCS; 2023-10-25)
PROC: 0HQ9XZZ Repair Perineum Skin, External Approach (ICD-10-PCS; 2023-10-25)
PROC: 3E0R3BZ Introduction of Anesthetic Agent into Spinal Canal, Percutaneous Approach (ICD-10-PCS; 2023-10-25)
PROC: 00HU33Z Insertion of Infusion Device into Spinal Canal, Percutaneous Approach (ICD-10-PCS; 2023-10-25)
DX: O99.344 Other mental disorders complicating childbirth (principal); O98.52 Other viral diseases complicating childbirth; Z37.0 Single live birth; Z3A.38 38 weeks gestation of pregnancy; O99.02 Anemia complicating childbirth; F42.9 Obsessive-compulsive disorder, unspecified; B00.9 Herpesviral infection, unspecified; Z88.1 Allergy status to other antibiotic agents; Z88.8 Allergy status to other drugs, medicaments and biological substances; Z79.899 Other long term (current) drug therapy; Z88.0 Allergy status to penicillin; O70.0 First degree perineal laceration during delivery
CPT/HCPCS: 36415; 51702; 59025; 85007; 85025; 85027; 86850; 86900; 86901; 86923; A9270; J1885; J2405; J2590; J2765; J3010; J7120

== ENCOUNTER → 2024-01-14 | Outpatient (CLI) | payer OTHER ==
[~2024-01-14] MED LIST changes: +ACET500 PO; +PRENATAL TABLE1 EAC2 PO
[2024-01-26 14:00] LABS: HPV HIGH RISK BY TMA Not Detected; HPV SOURCE Cervical
== END | disposition home or self-care (01) ==
LOC: LAB SHORT 10:00 → LAB 10:00
PROVIDERS: Family Medicine
DX: Z12.4 Encounter for screening for malignant neoplasm of cervix (principal)
CPT/HCPCS: 87624; G0123

== ENCOUNTER → 2024-09-30 | Outpatient (CLI) | payer OTHER ==
[2024-09-30 13:47] LABS: BASOPHILS ABSOLUTE AUTO 0.01 K/mm3 (0.00-0.23); BASOPHILS PERCENT AUTO 0 % (0-2); EOSINOPHILS ABSOLUTE AUTO 0.03 K/mm3 (0.00-0.68); EOSINOPHILS PERCENT AUTO 1 % (0-6); Hematocrit 39.8 % (33.0-51.0); Hemoglobin 13.1 g/dL (11.5-16.0); IMMATURE GRAN ABSOLUTE AUTO 0.02 K/mm3 (0.00-0.10); IMMATURE GRAN PERCENT AUTO 1 % (0-1); LYMPHOCYTES ABSOLUTE AUTO 0.99 K/mm3 (0.84-5.20); LYMPHOCYTES PERCENT AUTO 28 % (21-46); MONOCYTES ABSOLUTE AUTO 0.33 K/mm3 (0.16-1.47); MONOCYTES PERCENT AUTO 9 % (4-13); Mean Corpuscular HGB 27.7 pg (26.0-34.0); Mean Corpuscular HGB Conc 32.9 g/dL (31.5-36.5); Mean Corpuscular Volume 84 fL (80-100); NEUTROPHILS ABSOLUTE AUTO 2.18 K/mm3 (1.96-9.15); NEUTROPHILS PERCENT AUTO 61 % (41-73); RDW Coefficient Variation 14.1 % (11.7-14.2); RDW Standard Deviation 43.5 fL (35.1-46.3); Red Blood Cell Count 4.73 M/mm3 (3.80-5.20); White Blood Cell Count 3.56 K/mm3 (4.00-11.30)
[2024-09-30 13:52] LABS: Albumin, Blood 4.3 g/dL (3.4-5.0); Albumin/Globulin Ratio 1.1 (0.8-1.8); Bilirubin, Total 0.8 mg/dL (0.1-1.0); Bun/Creatinine Ratio 19.7 (12.0-20.0); Calcium, Blood 8.8 mg/dL (8.5-10.1); Creatinine, Blood 0.66 mg/dL (0.40-1.00); Potassium, Blood 3.9 mmol/L (3.5-5.5); Total Protein, Blood 8.3 g/dL (6.4-8.2)
[2024-09-30 13:56] LABS: Mean Platelet Volume 11.2 fL (9.1-12.4); Platelet Count 188 K/mm3 (150-400)
== END ==
LOC: LAB SHORT 13:34 → LAB 13:34
PROVIDERS: Physician Assistant
DX: R11.2 Nausea with vomiting, unspecified (principal)
CPT/HCPCS: 80053; 85025